=== PATIENT | female | born 1965 | race Caucasian/White ===

== ENCOUNTER 2016-11-06 18:27 | Emergency (ER) | payer BC, OTHER ==
[2016-11-06 18:37] VITALS: BP 131/70; PULSE 67; TEMP 98; BMI 33.0
[2016-11-06] MEDS ORDERED: IBUPROFEN 600 MG TABLET (FP) PO ONE ×2 (19:16→19:21)
[2016-11-06] MEDS ORDERED: CYCLOBENZAPRINE HCL 10 MG TABLET (FP) PO ONE (19:16)
--- NOTE | 2016-11-06 19:16 | PDOC ---
History of Present Illness - General Chief Complaint: Injury Stated Complaint: FALL, NECK PAIN Time Seen by Provider: 11/06/16 18:44 History Source: Patient Exam Limitations: No Limitations - History of Present Illness Initial Comments: 11/06/16 19:19 51-year-old female status post mechanical fall yesterday. Patient states was at [facility] when it began to rain causing her to slip backwards landing flat on her back striking her head. Patient states had no LOC but as the evening went on. Developing headache and nausea. Patient states symptoms continue but did not worsen since yesterday. Patient states on no anticoagulation therapy. Occurred: reports: yesterday Severity: reports: mild Pain Location: reports: head, neck Modifying Factors: improves with: None Associated Symptoms (Fall): headache, neck pain Past History - Travel Traveled outside of the country in the last 30 days: No Close contact w/someone who was outside of country & ill: No - Past Medical History Allergies/Adverse Reactions: Allergies Allergy/AdvReac Type Severity Reaction Status Date / Time No Known Drug Allergies Allergy Verified 11/06/16 18:37 Home Medications: Ambulatory Orders Albuterol Sulfate Inhaler - [Ventolin HFA Inhaler -] 1 - 2 inh PO QID PRN #1 inhaler 05/12/15 Cyclobenzaprine HCl [Flexeril -] 5 mg PO TID PRN #12 tablet 11/06/16 Anemia: No Asthma: Yes Cancer: No Cardiac Disorders: No CVA: No COPD: No CHF: No Dementia: No Diabetes: No GI Disorders: No Disorders: No HTN: No Hypercholesterolemia: No Liver Disease: No Seizures: No Thyroid Disease: No - Surgical History Abdominal Surgery: No Appendectomy: No Cardiac Surgery: No Cholecystectomy: No Lung Surgery: No Neurologic Surgery: No Orthopedic Surgery: Yes - Psycho/Social/Smoking Cessation Hx Anxiety: No Suicidal Ideation: No Smoking History: Never smoked Have you smoked in the past 12 months: No Information on smoking cessation initiated: No Hx Alcohol Use: No Drug/Substance Use Hx: No Substance Use Type: None Hx Substance Use Treatment: No Patient Lives Alone: No Lives with/in: spouse/SO Review of Systems - Review of Systems Able to Perform ROS?: Yes Constitutional: No: Symptoms Reported HEENTM: No: Symptoms Reported Respiratory: No: Symptoms reported Cardiac (ROS): No: Symptoms Reported ABD/GI: Yes: Nausea Musculoskeletal: Yes: Neck Pain Integumentary: Yes: Lumps (back of head) Neurological: Yes: Headache (occipital) Hematologic/Lymphatic: No: Symptoms Reported *Physical Exam - Vital Signs Last Vital Signs Temp Pulse Resp BP Pulse Ox 98 F 67 19 131/70 100 11/06/16 18:35 11/06/16 18:35 11/06/16 18:35 11/06/16 18:35 11/06/16 18:35 - Physical Exam General Appearance: Yes: Nourished, Appropriately Dressed. No: Apparent Distress HEENT: positive: EOMI, SREE, TMs Normal Neck: positive: Tender (C3-C4. left sternoclavicular muscle), Supple Gastrointestinal/Abdominal: positive: Soft. negative: Tenderness Integumentary: positive: Normal Color, Warm, Moist, Swelling (small hematoma to left occipital) Neurologic: positive: Normal Mood/Affect, Motor Strength 5/5 (ambulatory) Medical Decision Making - Medical Decision Making 11/06/16 19:24 Patient status post mechanical fall complaining of neck and head pain. Patient exam had point tenderness at C3-C4 and a small hematoma to the left occipital region. Patient ordered for Flexeril secondary to sternoclavicular tenderness on exam. Patient also ordered for Motrin head CT and cervical CT. 11/06/16 20:04 CT shows no gross fracture subluxation. There is no intracranial bleed or lesion. Patient be discharged home with postconcussive syndrome instructions and Flexeril along with Motrin. *DC/Admit/Observation/Transfer Diagnosis at time of Disposition: Post-concussion syndrome Closed head injury Qualifiers: Encounter type: initial encounter Qualified Code(s): S09.90XA - Unspecified injury of head, initial encounter - Discharge Dispostion Disposition: HOME Condition at time of disposition: Good - Prescriptions Prescriptions: Cyclobenzaprine HCl [Flexeril -] 5 mg PO TID PRN #12 tablet PRN Reason: Back Pain - Referrals Referrals: Lobito Murry MD [Primary Care Provider] - - Patient Instructions Printed Discharge Instructions: DI for Closed Head Injury, DI for Postconcussion Syndrome Additional Instructions: Please take Motrin and Flexeril as prescribed. please read over the instructions on postconcussive syndrome. If your symptoms worsen despite above recommendations please return to ED otherwise follow-up with your primary care physician.
[2016-11-06] MEDS ORDERED: CYCLOBENZAPRINE HCL 10 MG TABLET (FP) ONE (19:52)
== END 2016-11-06 20:13 | disposition home or self-care (01) ==
LOC: JERFT 18:27
DX: S09.90XA Unspecified injury of head, initial encounter (principal); W01.0XXA Fall on same level from slipping, tripping and stumbling without subsequent striking against object, initial encounter; F07.81 Postconcussional syndrome; J45.909 Unspecified asthma, uncomplicated; Y93.89 Activity, other specified; Y92.512 Supermarket, store or market as the place of occurrence of the external cause
CPT/HCPCS: 70450-TC; 72125-TC; 99281-25

== ENCOUNTER 2019-10-26 21:20 | Inpatient (IN) | payer OTHER ==
[2019-10-26 21:25] VITALS: BMI 33.0
--- NOTE | 2019-10-26 21:38 | PDOC ---
Attending Attestation - Resident Resident Name: Yaakov Herrera - ED Attending Attestation I have performed the following: I have examined & evaluated the patient, The case was reviewed & discussed with the resident, I agree w/resident's findings & plan - HPI HPI: 10/26/19 23:21 See resident HPI - Physicial Exam PE: 10/26/19 23:21 See resident exam - Medical Decision Making 10/26/19 23:21 54-year-old female with remote history of COVID 19 infection status post ablation for atrial fibrillation approximately 1 week ago currently on Eliquis now with chest pain radiating to the back CTA, dissection protocol performed of the chest abdomen and pelvis which showed no central pulmonary embolism or dissection, there was a pericardial effusion noted Patient's troponin is mildly elevated We will admit for observation and further evaluation Discharge - Discharge Information Problems reviewed: Yes Clinical Impression/Diagnosis: Chest pain, Pericardial effusion, Elevated troponin - Follow up/Referral Referrals: Lobito Murry MD [Primary Care Provider] - - Patient Discharge Instructions - Post Discharge Activity
--- NOTE | 2019-10-26 22:02 | PDOC ---
History of Present Illness - General Chief Complaint: Chest Pain Stated Complaint: CHEST/BACK PAIN Time Seen by Provider: 10/26/19 21:32 History Source: Patient Exam Limitations: No Limitations - History of Present Illness Initial Comments: 10/27/19 05:40 54 yo female pmh A fib on eliquis and COVID diagnosed July presents to the ED for CP and SOB. Pt states she had an ablation for afib 1 week ago at [facility]. States the pain began 1 day ago, persistent, described as substernal burning with radiation straight to her back. Pt states she is unable to lie flat since it makes the pain and SOB worse. Deniese F/C/N/V, abdominal pain, weakness or sensory changes on 1 side Past History - Medical History Allergies/Adverse Reactions: Allergies Allergy/AdvReac Type Severity Reaction Status Date / Time No Known Drug Allergies Allergy Verified 10/26/19 21:25 Home Medications: Ambulatory Orders Atorvastatin Ca [Lipitor] 40 mg PO HS 07/14/19 Metoprolol Succinate [Toprol Xl] 25 mg PO DAILY 07/14/19 Acetaminophen [Tylenol .Regular Strength -] 650 mg PO Q4H PRN tablet 07/21/19 Apixaban [Eliquis -] 5 mg PO BID #60 tablet 07/21/19 Ascorbic Acid [Vitamin C] 250 mg PO BID #60 tablet 07/21/19 Hydroxychloroquine Sulfate [Plaquenil] 200 mg PO BID #4 tablet 07/21/19 Zinc 50 mg PO BID #60 tablet 07/21/19 Anemia: No Asthma: Yes Cancer: No Cardiac Disorders: Yes (A fib) CVA: No COPD: No CHF: No Dementia: No Diabetes: No GI Disorders: No Disorders: No HTN: No Hypercholesterolemia: No Liver Disease: No Seizures: No Thyroid Disease: No - Surgical History Abdominal Surgery: No Appendectomy: No Cardiac Surgery: Yes (ablasion 10/2019) Cholecystectomy: No Lung Surgery: No Neurologic Surgery: No Orthopedic Surgery: Yes - Immunization History Immunization Up to Date: Yes - Psycho-Social/Smoking History Smoking History: Never smoked Have you smoked in the past 12 months: No - Substance Abuse Hx (Audit-C & DAST Scrn) How often the patient has a drink containing alcohol: Never Score: In Men: 4 or > Positive; In Women: 3 or > Positive: 0 Screen Result (Pos requires Nsg. Audit-10AR): Negative Review of Systems - Review of Systems Constitutional: Yes: Symptoms Reported HEENTM: Yes: Symptoms Reported Respiratory: Yes: Symptoms reported Cardiac (ROS): Yes: Symptoms Reported ABD/GI: Yes: Symptoms Reported : Yes: Symptoms Reported Musculoskeletal: Yes: Symptoms Reported Integumentary: Yes: Symptoms Reported Neurological: Yes: Symptoms reported *Physical Exam - Vital Signs Last Vital Signs Temp Pulse Resp BP Pulse Ox 98 F 108 H 20 121/71 95 10/26/19 21:22 10/26/19 21:22 10/26/19 21:22 10/26/19 21:22 10/26/19 21:22 - Physical Exam General Appearance: Yes: Nourished, Appropriately Dressed, Apparent Distress (bent forward in pain) HEENT: positive: EOMI Neck: positive: Supple. negative: Carotid bruit Respiratory/Chest: positive: Lungs Clear, Normal Breath Sounds. negative: Respiratory Distress, Accessory Muscle Use, Rapid RR, Crackles, Rales, Rhonchi, Stridor, Wheezing Cardiovascular: positive: Regular Rhythm, S1, S2, Tachycardia. negative: Edema, JVD, Murmur Gastrointestinal/Abdominal: positive: Flat, Soft. negative: Pulsatile Mass, Protuberent, Distended, Guarding, Rebound, Tenderness Musculoskeletal: negative: CVA Tenderness Extremity: positive: Other (radial pulses equal bilaterally). negative: Delayed Capillary Refill Integumentary: positive: Normal Color, Dry, Warm Neurologic: positive: Fully Oriented, Alert, Normal Mood/Affect, Normal Response ED Treatment Course - LABORATORY CBC & Chemistry Diagram: 10/26/19 22:00 10/26/19 22:00 - RADIOLOGY Radiology Studies Ordered: Category Date Time Status ABDOMEN/PELVIS CTA W/WO CONTR [CT] Stat CT Scan 10/26/19 21:49 Ordered CHEST CTA [CT] Stat CT Scan 10/26/19 21:49 Ordered CHEST PA & LAT [RAD] Stat Radiology 10/26/19 21:32 Ordered Medical Decision Making - Medical Decision Making 10/26/19 22:02 54 yo female pmh A fib on eliquis and COVID diagnosed July presents to the ED for CP and SOB. Pt states she had an ablation for afib 1 week ago at [facility]. States the pain began 1 day ago, persistent, described as substernal burning with radiation straight to her back. Pt states she is unable to lie flat since it makes the pain and SOB worse. [place] F/C/N/V, abdominal pain, weakness or sensory changes on 1 side vitals show elevated HR and systolic BP 117 on the left arm and 130 systolic on the right Due to description of pain and vitals, R/O aortic dissection CTA indicated prior to labs Pt is post menopausal 6 years EKG NSR without acute signs of ischemia Tylenol given R/O dissection, will not wait for labs, patient agrees, risks and benefits explained and pt demonstrates clear understanding. Pt sign paper work 10/27/19 00:02 CTA neg for dissection however, small pericardial effusion noted Discussed case with Dr. Damon Cardiology, states likely having Pericarditis. States 0.6 mg Colchicine BID for 2 weeks and switch to 0.6 mg once daily. Aware of elevated trop, states it should be trended and will Dr. Wade will see the patient in the morning. Pt reports improvement in pain Pt accepted for admission Discharge - Discharge Information Problems reviewed: Yes Clinical Impression/Diagnosis: Chest pain, Pericardial effusion, Elevated troponin, Pericarditis, Myocarditis - Admission Yes - Follow up/Referral - Patient Discharge Instructions - Post Discharge Activity
[2019-10-26 22:16] LABS: BASO % 0.4 % (0-2.0); EOS % 0.6 % (0-4.5); HEMATOCRIT 38.7 % (32.4-45.2); HEMOGLOBIN 13.6 GM/dL (10.7-15.3); LYMPH % 9.3 % (8-40); MCH 31.3 pg (25.7-33.7); MEAN CELL VOLUME 89.4 fl (80-96); MEAN PLT VOLUME 7.4 fl (7.5-11.1); MONO % 8.7 % (3.8-10.2); PLATELET COUNT 255 K/MM3 (134-434); RBC 4.33 M/mm3 (3.60-5.2); RDW 13.8 % (11.6-15.6)
[2019-10-26 22:19] LABS: INR 1.28 (0.83-1.09); PROTHROMBIN TIME (PATIENT) 15.1 SEC (9.7-13.0)
[2019-10-26 22:22] LABS: ACTIVATED PTT 32.9 SECONDS (25.2-36.5)
[2019-10-26 22:41] LABS: ALBUMIN 3.6 g/dl (3.4-5.0); BILIRUBIN,TOTAL 0.8 mg/dL (0.2-1); BLOOD UREA NITROGEN 9.1 mg/dL (7-18); CALCIUM 8.8 mg/dL (8.5-10.1); CREATININE 0.8 mg/dL (0.55-1.3); MAGNESIUM 1.8 mg/dL (1.8-2.4); POTASSIUM 3.4 mmol/L (3.5-5.1)
[2019-10-26] MEDS ORDERED: ACETAMINOPHEN 1000 MG/100 ML VIAL (NON FORMULARY) IVPB ONE (23:20)
[2019-10-26] MEDS ORDERED: ACETAMINOPHEN INJECTION 100 ML IVPB ONE (23:24)
[2019-10-27] MEDS ORDERED: COLCHICINE 0.6 MG CAP PO ONE (00:01)
--- NOTE | 2019-10-27 00:09 | HP ---
Admitting History and Physical - Primary Care Physician PCP: Lobito Murry - Admission Chief Complaint: Chest Pain History of Present Illness: This is a 54 y/o female with a pMhx of Afib (on eliquis), +COVID (diagnosed last July), s/p Cardiac Ablation for Afib at [facility] (last week). Who presents to the ED for CP and SOB. Patient reports having substernal burning chest pain that radiated to her back, with SOB and pain on deep inspiration x 1 day. Patient reports that she is unable to lie flat since it makes the pain and SOB worse. Patient denies fever, chills, cough, NEVES. dizziness, AP, N/V/D, constipation, dysuria. History Source: Patient Limitations to Obtaining History: No Limitations - Past Medical History Cardiovascular: Yes: HTN, Hyperlipdemia Pulmonary: Yes: COPD ...LMP: 09/05/11 Infectious Disease: Yes: Other (COVID-19) - Past Surgical History Additional Past Surgical History: Cardiac Ablation (10/2019) - Smoking History Smoking history: Never smoked Have you smoked in the past 12 months: No - Alcohol/Substance Use Hx Alcohol Use: No History of Substance Use: reports: None - Social History Usual Living Arrangement: Yes: With Spouse Do you think of yourself as: Straight/Heterosexual ADL: Independent Home Medications - Allergies Allergies/Adverse Reactions: Allergies Allergy/AdvReac Type Severity Reaction Status Date / Time No Known Drug Allergies Allergy Verified 10/26/19 21:25 - Home Medications Home Medications: Ambulatory Orders Atorvastatin Ca [Lipitor] 20 mg PO HS 07/14/19 Metoprolol Succinate [Toprol Xl] 25 mg PO DAILY 07/14/19 Acetaminophen [Tylenol .Regular Strength -] 650 mg PO Q4H PRN tablet 07/21/19 Apixaban [Eliquis -] 5 mg PO BID #60 tablet 07/21/19 Pantoprazole Sodium [Protonix] 40 mg PO DAILY 10/27/19 Sucralfate Oral Suspension [Carafate *Oral Susp*] 1 gm PO DAILY 10/27/19 Family Medical History Family History: Unable to Obtain Review of Systems - Review of Systems Constitutional: reports: No Symptoms Eyes: reports: No Symptoms HENT: reports: No Symptoms Neck: reports: No Symptoms Cardiovascular: reports: Chest Pain, Shortness of Breath Respiratory: reports: SOB Gastrointestinal: reports: No Symptoms Genitourinary: reports: No Symptoms Breasts: reports: No Symptoms Reported Musculoskeletal: reports: Back Pain Integumentary: reports: No Symptoms Neurological: reports: No Symptoms Endocrine: reports: No Symptoms Hematology/Lymphatic: reports: No Symptoms Psychiatric: reports: No Symptoms Pain Intensity: 6 Physical Examination Vital Signs: Vital Signs Temperature 98 F 10/26/19 21:22 Pulse Rate 108 H 10/26/19 21:22 Respiratory Rate 20 10/26/19 21:22 Blood Pressure 121/71 10/26/19 21:22 O2 Sat by Pulse Oximetry (%) 95 10/26/19 21:22 Constitutional: Yes: No Distress, Calm, Obese Eyes: Yes: WNL, Conjunctiva Clear, EOM Intact, PERRL HENT: Yes: WNL, Atraumatic, Normocephalic Neck: Yes: WNL, Supple, Trachea Midline Cardiovascular: Yes: Regular Rate and Rhythm, S1, S2 Respiratory: Yes: Diminished (bases) Gastrointestinal: Yes: WNL, Normal Bowel Sounds, Soft ...Rectal Exam: Yes: Deferred Renal/: Yes: WNL Breast(s): Yes: WNL Musculoskeletal: Yes: Back Pain Extremities: Yes: WNL Edema: No Peripheral Pulses WNL: Yes Integumentary: Yes: WNL Neurological: Yes: WNL, Alert, Oriented, Cran Nerves II-XII Intact ...Motor Strength: WNL Psychiatric: Yes: WNL, Alert, Oriented Labs: CBC, BMP 10/26/19 22:00 10/26/19 22:00 Laboratory Results - last 24 hr 10/26/19 10/26/19 10/26/19 22:00 22:00 22:00 WBC 10.0 RBC 4.33 Hgb 13.6 Hct 38.7 MCV 89.4 MCH 31.3 MCHC 35.0 RDW 13.8 Plt Count 255 D MPV 7.4 L Absolute Neuts (auto) 8.1 H Neutrophils % 81.0 D Lymphocytes % 9.3 D Monocytes % 8.7 Eosinophils % 0.6 Basophils % 0.4 Nucleated RBC % 0 PT with INR 15.10 H INR 1.28 H PTT (Actin FS) 32.9 D-Dimer Sodium Potassium Chloride Carbon Dioxide Anion Gap BUN Creatinine Est GFR (CKD-EPI)AfAm Est GFR (CKD-EPI)NonAf Random Glucose Lactic Acid Calcium Magnesium Total Bilirubin AST ALT Alkaline Phosphatase Creatine Kinase Troponin I Total Protein Albumin Serum , Qual Negative Blood Type Antibody Screen 10/26/19 10/26/19 10/26/19 22:00 22:00 22:00 WBC RBC Hgb Hct MCV MCH MCHC RDW Plt Count MPV Absolute Neuts (auto) Neutrophils % Lymphocytes % Monocytes % Eosinophils % Basophils % Nucleated RBC % PT with INR INR PTT (Actin FS) D-Dimer 799 H Sodium 138 Potassium 3.4 L Chloride 104 Carbon Dioxide 25 Anion Gap 10 BUN 9.1 Creatinine 0.8 Est GFR (CKD-EPI)AfAm 96.87 Est GFR (CKD-EPI)NonAf 83.58 Random Glucose 125 H Lactic Acid 1.6 Calcium 8.8 Magnesium 1.8 Total Bilirubin 0.8 AST 32 ALT 61 Alkaline Phosphatase 103 Creatine Kinase 58 Troponin I 0.17 H Total Protein 7.0 Albumin 3.6 Serum , Qual Blood Type Antibody Screen 10/26/19 22:00 WBC RBC Hgb Hct MCV MCH MCHC RDW Plt Count MPV Absolute Neuts (auto) Neutrophils % Lymphocytes % Monocytes % Eosinophils % Basophils % Nucleated RBC % PT with INR INR PTT (Actin FS) D-Dimer Sodium Potassium Chloride Carbon Dioxide Anion Gap BUN Creatinine Est GFR (CKD-EPI)AfAm Est GFR (CKD-EPI)NonAf Random Glucose Lactic Acid Calcium Magnesium Total Bilirubin AST ALT Alkaline Phosphatase Creatine Kinase Troponin I Total Protein Albumin Serum , Qual Blood Type O POSITIVE Antibody Screen Negative Intake & Output 10/24/19 10/25/19 10/26/19 10/27/19 23:59 23:59 23:59 23:59 Weight 104.326 kg Current Medications Generic Name Dose Route Start Last Admin Trade Name Freq PRN Reason Stop Dose Admin Apixaban 5 mg 10/27/19 00:45 10/27/19 01:15 Eliquis - PO 5 mg BID THOMAS Administration Atorvastatin Calcium 40 mg 10/27/19 00:37 10/27/19 01:15 Lipitor - PO 40 mg HS THOMAS Administration Sucralfate 1 gm 10/27/19 00:45 10/27/19 01:24 Carafate Oral Suspension - PO 1 gm BID THOMAS Administration Imaging - Results Cat Scan: Report Reviewed, Image Reviewed EKG: Image Reviewed Problem List - Problems (1) Chest pain Assessment/Plan: Likely secondary to Pericarditis Less likely ACS HEART Score 4 Continue cardiac monitoring Serial enzymes EKG reviewed Appreciate Cardiology consult Colchicine given in ED will continue Monitor CBC, CMP Code(s): R07.9 - CHEST PAIN, UNSPECIFIED (2) Elevated troponin Assessment/Plan: Likely due to post ablation EKG- no ischemia noted Serial enzymes Cardiology consulted Code(s): R79.89 - OTHER SPECIFIED ABNORMAL FINDINGS OF BLOOD CHEMISTRY (3) A-fib Assessment/Plan: s/p Ablation EKG reviewed Continue Metoprolol, Eliquis Code(s): I48.91 - UNSPECIFIED ATRIAL FIBRILLATION (4) HTN (hypertension) Assessment/Plan: stable Monitor BP Continue Metoprolol Monitor renal function Code(s): I10 - ESSENTIAL (PRIMARY) HYPERTENSION (5) Suspected COVID-19 virus infection Assessment/Plan: SMART-STITCH WELDER 2, low risk COVID + 07/2019 CTA- reviewed COVID PCR-pending Isolation Precautions Code(s): R68.89 - OTHER GENERAL SYMPTOMS AND SIGNS Assessment/Plan This is a 54 y/o female admitted to Telemetry for Chest Pain, Suspected COVID-19 Infection, Troponinemia for further evaluation of their emergent condition. Plan: See Problem List FEN PO fluids as tolerated Replete lytes prn Low Na Diet DVT ppx OOB SCDs Continue Eliquis Dispo: Requires Inpatient Care Visit type - Emergency Visit Emergency Visit: Yes ED Registration Date: 10/26/19 Care time: The patient presented to the Emergency Department on the above date and was hospitalized for further evaluation of their emergent condition. - New Patient This patient is new to me today: Yes Date on this admission: 10/27/19 - Critical Care Critical Care patient: No
[2019-10-27] MEDS ORDERED: COLCHICINE 0.6 MG CAP ONE ×2 (00:23→09:48)
[2019-10-27] MEDS ORDERED: APIXABAN 5 MG TABLET ONE ×2 (01:01→09:48)
[2019-10-27] MEDS ORDERED: SUCRALFATE 1 GM TABLET (FP) ONE (01:02)
[2019-10-27] MEDS ORDERED: ATORVASTATIN CA 40 MG TABLET (FP) ONE (01:02)
[2019-10-27] MEDS: APIXABAN 5 MG TABLET PO SCH ×3 (01:15→21:17)
[2019-10-27] MEDS: ATORVASTATIN CA 40 MG TABLET (FP) PO SCH ×2 (01:15→21:17)
[2019-10-27] MEDS: SUCRALFATE 1 GM/10 ML UNIT DOSE CUPS PO SCH ×3 (01:24→21:17)
[2019-10-27] MEDS ORDERED: ACETAMINOPHEN 325 MG TABLET (FP) PO PRN (07:16)
[2019-10-27 07:24] LABS: BASO % 0.9 % (0-2.0); EOS % 0.7 % (0-4.5); HEMATOCRIT 37.5 % (32.4-45.2); HEMOGLOBIN 12.7 GM/dL (10.7-15.3); LYMPH % 16.2 % (8-40); MCH 30.5 pg (25.7-33.7); MCHC 33.9 g/dl (32.0-36.0); MEAN CELL VOLUME 89.9 fl (80-96); MEAN PLT VOLUME 8.1 fl (7.5-11.1); MONO % 11.4 % (3.8-10.2); NEUT % 70.8 % (42.8-82.8); PLATELET COUNT 248 K/MM3 (134-434); RBC 4.17 M/mm3 (3.60-5.2); RDW 13.8 % (11.6-15.6)
[2019-10-27 07:51] LABS: ALBUMIN 3.2 g/dl (3.4-5.0); BILIRUBIN,TOTAL 1.1 mg/dL (0.2-1); BLOOD UREA NITROGEN 6.6 mg/dL (7-18); CALCIUM 8.6 mg/dL (8.5-10.1); CREATININE 0.7 mg/dL (0.55-1.3); MAGNESIUM 1.9 mg/dL (1.8-2.4); POTASSIUM 3.9 mmol/L (3.5-5.1); TOT PROT 6.4 g/dl (6.4-8.2)
[2019-10-27] MEDS: COLCHICINE 0.6 MG CAP PO SCH ×2 (10:07→21:17)
--- NOTE | 2019-10-27 11:48 | CON.CARD ---
Consult Consult Specialty:: Cardiology Referred by:: Hospitalist Reason for Consultation:: Chest pain, sob, elevated trop - History of Present Illness Chief Complaint: Chest pain, sob History of Present Illness: 54 year old woman with a pmh HTN, HLD, COVID19 infection 07/2019, Afib dx 07/2019 at time of COVID19 on eliquis, s/p ablation 1 week ago at [facility], admitted with chest pain and sob and mildly elevated troponin. CTA chest done to r/o dissection showed no aneursym or dissection but a small pericardial effusion. Pt seen and examined today in nad. states she has been having substernal chest pain radiating to her back worsened by lying down and other positions and relieved by sitting up. also notes sob/jay that she has had since her COVID19 infection but has not worsened recently. no palpitations, pnd, orthopnea, or LE edema. No fever or chills. She has had 2 prior cardiac caths, most recent 02/2019 at [facility] at which time found to have normal coronary arteries. - History Source History Provided By: Patient, Medical Record Limitations to Obtaining History: No Limitations - Past Medical History Cardio/Vascular: Yes: AFIB, HTN, Hyperlipdemia Pulmonary: Yes: COPD ...LMP: 09/05/11 Infectious Disease: Yes: Other (COVID-19) - Alcohol/Substance Use Hx Alcohol Use: No History of Substance Use: reports: None - Smoking History Smoking history: Never smoked Have you smoked in the past 12 months: No - Social History ADL: Independent Home Medications - Allergies Allergies/Adverse Reactions: Allergies Allergy/AdvReac Type Severity Reaction Status Date / Time No Known Drug Allergies Allergy Verified 10/26/19 21:25 - Home Medications Home Medications: Ambulatory Orders Atorvastatin Ca [Lipitor] 20 mg PO HS 07/14/19 Metoprolol Succinate [Toprol Xl] 25 mg PO DAILY 07/14/19 Acetaminophen [Tylenol .Regular Strength -] 650 mg PO Q4H PRN tablet 07/21/19 Apixaban [Eliquis -] 5 mg PO BID #60 tablet 07/21/19 Pantoprazole Sodium [Protonix] 40 mg PO DAILY 10/27/19 Sucralfate Oral Suspension [Carafate *Oral Susp*] 1 gm PO DAILY 10/27/19 Family Medical History Family History: Denies Review of Systems - Review of Systems Constitutional: denies: No Symptoms, Chills, Diaphoresis, Fever, Lethargy, Loss of Appetite, Malaise, Night Sweats, Unintentional Wgt. Loss, Weakness, Other Eyes: denies: No Symptoms, Blind Spots, Blurred Vision, Double Vision, Eye Pain, Floaters, Photophobia, Recent Change in Vision, Other HENT: denies: No Symptoms, Difficult Swallowing, Ear Discharge, Ear Pain, Epistaxis, Gingival Bleeding, Hearing Loss, Mouth Swelling, Nasal Congestion, Ocular Prosthesis, Throat Pain, Toothache, Ringing in Ears, Other Neck: denies: No Symptoms, Decreased ROM, Lumps, Pain on Movement, Stiffness, Swollen Glands, Tenderness, Other Cardiovascular: reports: Chest Pain, Shortness of Breath. denies: No Symptoms, Edema, Palpitations, Other Respiratory: reports: SOB, SOB on Exertion. denies: No Symptoms, Cough, E xercise Intolerance, Hemoptysis, Orthopnea, PND, Snoring, Wheezing, Other Gastrointestinal: denies: No Symptoms, Abdominal Pain, Bloating, Constipation, Diarrhea, Dysphagia, Indigestion, Melena, Nausea, Rectal Bleeding, Vomiting, Vomiting Blood, Other Genitourinary: denies: No Symptoms, Burning, Discharge, Dysuria, Flank Pain, Frequency, Hematuria, Incontinence, Lesions, Menses, Pain, Testicular Mass, Testicular Pain, Testicular Swelling, Urgency, Vaginal Bleeding, Other Breasts: denies: No Symptoms Reported, See HPI, Breast Implants, Discharge from Nipple, Lumps, Pain, Skin Changes, Other Musculoskeletal: denies: No Symptoms, Back Pain, Crepitus, Decreased ROM, Extremity Pain, Joint Pain, Joint Swelling, Muscle Pain, Muscle Cramps, Muscle Weakness, Other Integumentary: denies: No Symptoms, Blister, Bruising, Change in Color, Eczema, Erythema, Incision, Lesions, Lump, Pallor, Pruritis, Rash, Wound, Other Neurological: denies: No Symptoms, Change in LOC, Change in Speech, Confusion, Dizziness, Headache, Incoordination, Numbness, Parasthesia, Pre-Existing Deficit, Seizure, Syncope, Tremors, Unsteady Gait, Weakness, Other Endocrine: denies: No Symptoms, Excessive Sweating, Flushing, Increased Hunger, Increased Thirst, Intolerance to Cold, Intolerance to Heat, Unexplained Weight Gain, Unexplained Weight Loss, Other Hematology/Lymphatic: denies: No Symptoms, Easily Bruised, Excessive Bleeding, Swollen Glands, Other Psychiatric: denies: No Symptoms, Altered Sleep Pattern, Anxiety, Depression, Hallucinations, Panic, Paranoia, Suicidal, Other - Risk Factors Known Risk Factors: Yes: Hypercholesterolemia, Hypertension Vital Signs: Vital Signs Temperature 99.2 F 10/27/19 10:00 Pulse Rate 90 10/27/19 10:00 Respiratory Rate 18 10/27/19 10:00 Blood Pressure 100/64 10/27/19 10:00 O2 Sat by Pulse Oximetry (%) 99 10/27/19 10:00 Constitutional: Yes: Well Nourished, No Distress, Calm Eyes: Yes: Conjunctiva Clear, EOM Intact HENT: Yes: Atraumatic, Normocephalic Neck: Yes: Supple, Trachea Midline Respiratory: Yes: Regular, Rhonchi, SOB on Exertion. No: Rales, SOB, Wheezes Gastrointestinal: Yes: Normal Bowel Sounds, Soft. No: Distention, Tenderness Cardiovascular: Yes: Regular Rate and Rhythm. No: Bradycardia, Tachycardia, Pulse Irregular, Gallop, Rub, Varicosities JVD: No Carotid Bruit: No PMI: Non-Displaced Heart Sounds: Yes: S1, S2. No: Split S2, S3, S4, Clicks, Gallop, Rub, Bruit Murmur: No: Systolic Murmur, Diastolic Murmur Musculoskeletal: Yes: WNL Extremities: Yes: WNL Edema: No Peripheral Pulses WNL: Yes Peripheral Pulses: 2+ Left Doralis Pedis, 2+ Right Dorsalis Pedis Neurological: Yes: Alert, Oriented Psychiatric: Yes: Alert, Oriented - Other Data Labs, Other Data: CBC, BMP 10/27/19 05:45 10/27/19 06:00 INR, PTT INR 1.28 (0.83-1.09) H 10/26/19 22:00 Troponin, BNP 10/26/19 10/27/19 22:00 06:00 Troponin I 0.17 H 0.15 H Troponin, BNP 10/26/19 10/27/19 22:00 06:00 Troponin I 0.17 H 0.15 H ekg-nsr, no ischemia Prior Cardiac Procedures: Ablation Imaging - Results Chest X-ray: Report Reviewed, Image Reviewed EKG: Report Reviewed, Image Reviewed Other: Report Reviewed, Image Reviewed Assessment/Plan 54 year old woman with a pmh HTN, HLD, COVID19 infection 07/2019, Afib on eliquis, s/p ablation 1 week ago at [facility], admitted with chest pain and sob and mildly elevated troponin. CTA chest done to r/o dissection showed no aneursym or dissection but a small pericardial effusion. Pt seen and examined today in nad. states she has been having substernal chest pain radiating to her back worsened by lying down and other positions and relieved by sitting up. also notes sob/jay that she has had since her COVID19 infection but has not worsened recently. no palpitations, pnd, orthopnea, or LE edema. No fever or chills. She has had 2 prior cardiac caths, most recent 02/2019 at [facility] at which time found to have normal coronary arteries. Chest pain -clinically c/w pericarditis -not c/w ACS -elevated troponin with normal CK, have not trended up significantly, could be residual elevation post ablation -recent cardiac cath showed normal coronary arteries -no ischemia on ekg -recent Afib ablation and small pericardial effusion on CT supports pericarditis despite no obvious ECG findings -started on colchicine which should continue on discharge -d/w Dr. Payan, EP who did her ablation and he agrees with above -check echo to confirm pericardial effusion -does not require an ischemic evaluation Afib-s/p ablation 1 week ago [facility] on admission -cont eliquis -outpatient fup If echo shows only small pericardial effusion and if pts symptoms improve would be acceptable for discharge home with outpatient fup.
--- NOTE | 2019-10-27 12:13 | EKG ---
Test Reason : Blood Pressure : / mmHG Vent. Rate : 108 BPM Atrial Rate : 108 BPM P-R Int : 164 ms QRS Dur : 080 ms QT Int : 334 ms P-R-T Axes : 070 019 000 degrees QTc Int : 447 ms POOR DATA QUALITY, INTERPRETATION MAY BE ADVERSELY AFFECTED SINUS TACHYCARDIA T WAVE ABNORMALITY, CONSIDER INFEROLATERAL ISCHEMIA ABNORMAL ECG WHEN COMPARED WITH ECG OF 21-JUL-2019 10:38, SINUS RHYTHM HAS REPLACED ATRIAL FIBRILLATION Confirmed by DAVID FRAGOSO MD ([id number]) on 10/27/2019 12:13:17 PM Referred By: Confirmed By:DAVID FRAGOSO MD
--- NOTE | 2019-10-27 12:31 | PN ---
Physical Exam: SUBJECTIVE: Patient seen and examined. She was seen eating lunch. She reports that she still has some difficulty with deep breathing however slightly improved compared to yesterday. OBJECTIVE: Vital Signs Period Temp Pulse Resp BP Sys/Kimball Pulse Ox Last 24 Hr 98 F-99.6 F 85-108 18- 98-121/63-78 95-99 GENERAL: The patient is awake, alert, and fully oriented, in no acute distress. HEAD: Normal with no signs of trauma. EYES: PERRL, extraocular movements intact, sclera anicteric, conjunctiva clear. No ptosis. ENT: Ears normal, nares patent, oropharynx clear without exudates, moist mucous membranes. NECK: Trachea midline, full range of motion, supple. LUNGS: Faint crackles at the bases. No ronchi nor wheezing. Poor air movement HEART: Borderline tachycardic, no murmurs ABDOMEN: Soft, nontender, nondistended, normoactive bowel sounds, no guarding, no rebound, no hepatosplenomegaly, no masses. EXTREMITIES: 2+ pulses, warm, well-perfused, no edema. NEUROLOGICAL: Cranial nerves II through XII grossly intact. Normal speech, gait not observed. PSYCH: Normal mood, normal affect. SKIN: Warm, dry, normal turgor, no rashes or lesions noted Laboratory Results - last 24 hr 10/26/19 10/26/19 10/26/19 22:00 22:00 22:00 WBC 10.0 RBC 4.33 Hgb 13.6 Hct 38.7 MCV 89.4 MCH 31.3 MCHC 35.0 RDW 13.8 Plt Count 255 D MPV 7.4 L Absolute Neuts (auto) 8.1 H Neutrophils % 81.0 D Lymphocytes % 9.3 D Monocytes % 8.7 Eosinophils % 0.6 Basophils % 0.4 Nucleated RBC % 0 PT with INR 15.10 H INR 1.28 H PTT (Actin FS) 32.9 D-Dimer Sodium Potassium Chloride Carbon Dioxide Anion Gap BUN Creatinine Est GFR (CKD-EPI)AfAm Est GFR (CKD-EPI)NonAf Random Glucose Lactic Acid Calcium Magnesium Total Bilirubin AST ALT Alkaline Phosphatase LD Total Creatine Kinase Troponin I C-Reactive Protein Total Protein Albumin Triglycerides Cholesterol Total LDL Cholesterol HDL Cholesterol Serum , Qual Negative Blood Type Antibody Screen 10/26/19 10/26/19 10/26/19 22:00 22:00 22:00 WBC RBC Hgb Hct MCV MCH MCHC RDW Plt Count MPV Absolute Neuts (auto) Neutrophils % Lymphocytes % Monocytes % Eosinophils % Basophils % Nucleated RBC % PT with INR INR PTT (Actin FS) D-Dimer 799 H Sodium 138 Potassium 3.4 L Chloride 104 Carbon Dioxide 25 Anion Gap 10 BUN 9.1 Creatinine 0.8 Est GFR (CKD-EPI)AfAm 96.87 Est GFR (CKD-EPI)NonAf 83.58 Random Glucose 125 H Lactic Acid 1.6 Calcium 8.8 Magnesium 1.8 Total Bilirubin 0.8 AST 32 ALT 61 Alkaline Phosphatase 103 LD Total Creatine Kinase 58 Troponin I 0.17 H C-Reactive Protein Total Protein 7.0 Albumin 3.6 Triglycerides Cholesterol Total LDL Cholesterol HDL Cholesterol Serum , Qual Blood Type Antibody Screen 10/26/19 10/27/19 10/27/19 22:00 05:45 05:45 WBC 9.0 RBC 4.17 Hgb 12.7 Hct 37.5 MCV 89.9 MCH 30.5 MCHC 33.9 RDW 13.8 Plt Count 248 MPV 8.1 Absolute Neuts (auto) 6.3 Neutrophils % 70.8 Lymphocytes % 16.2 D Monocytes % 11.4 H Eosinophils % 0.7 Basophils % 0.9 Nucleated RBC % 0 PT with INR INR PTT (Actin FS) D-Dimer 782 H Sodium Potassium Chloride Carbon Dioxide Anion Gap BUN Creatinine Est GFR (CKD-EPI)AfAm Est GFR (CKD-EPI)NonAf Random Glucose Lactic Acid Calcium Magnesium Total Bilirubin AST ALT Alkaline Phosphatase LD Total Creatine Kinase Troponin I C-Reactive Protein Total Protein Albumin Triglycerides Cholesterol Total LDL Cholesterol HDL Cholesterol Serum , Qual Blood Type O POSITIVE Antibody Screen Negative 10/27/19 10/27/19 10/27/19 06:00 06:00 06:00 WBC RBC Hgb Hct MCV MCH MCHC RDW Plt Count MPV Absolute Neuts (auto) Neutrophils % Lymphocytes % Monocytes % Eosinophils % Basophils % Nucleated RBC % PT with INR INR PTT (Actin FS) D-Dimer Sodium 140 Potassium 3.9 Chloride 102 Carbon Dioxide 29 Anion Gap 8 BUN 6.6 L Creatinine 0.7 Est GFR (CKD-EPI)AfAm 113.84 Est GFR (CKD-EPI)NonAf 98.23 Random Glucose 106 Lactic Acid Calcium 8.6 Magnesium 1.9 Total Bilirubin 1.1 H AST 24 ALT 52 Alkaline Phosphatase 92 LD Total 174 Creatine Kinase Troponin I 0.15 H C-Reactive Protein 9.3 H Total Protein 6.4 Albumin 3.2 L Triglycerides 44 Cholesterol 130 Total LDL Cholesterol 72 HDL Cholesterol 47 Serum , Qual Blood Type Antibody Screen Active Medications Generic Name Dose Route Start Last Admin Trade Name Freq PRN Reason Stop Dose Admin Acetaminophen 650 mg 10/27/19 07:16 Tylenol - PO Q6H PRN PAIN LEVEL 6-10 Apixaban 5 mg 10/27/19 00:45 10/27/19 10:07 Eliquis - PO 5 mg BID THOMAS Administration Atorvastatin Calcium 40 mg 10/27/19 00:37 10/27/19 01:15 Lipitor - PO 40 mg HS THOMAS Administration Colchicine 0.6 mg 10/27/19 10:00 10/27/19 10:07 Colcrys PO 0.6 mg BID THOMAS Administration Sucralfate 1 gm 10/27/19 00:45 10/27/19 10:07 Carafate Oral Suspension - PO 1 gm BID THOMAS Administration ASSESSMENT/PLAN: 1. Chest pains likely from pericarditis - sp recent afib ablation - colchicine initiated - appreciate input by human relations professor 2. Afib with borderline controlled rate - cont with anticoagulation with eliquis 3. Abnormal CT - recently recovered from covid-19 - re swab for covid-19 - cover for bacterial pneumonia - Requested Dr Marcos (met pt previously) to see patient - oxygen support to keep sats>92% and above - send D-dimer, LDH, ferritin 4. DVT prophylaxis - on Eliquis (#2) Visit type - Emergency Visit Emergency Visit: No - New Patient This patient is new to me today: Yes Date on this admission: 11/11/19 - Critical Care Critical Care patient: No - Discharge Referral Referred to [facility] No
[2019-10-27] MEDS ORDERED: CEFTRIAXONE 1 GM/50 ML BAG ONE (14:17)
[2019-10-27] MEDS: CEFTRIAXONE 1 GM in DEXTROSE 5%-WATER - 50 ML IVPB SCH (14:25)
--- NOTE | 2019-10-27 15:49 | ECHO ---
Name: STORMY RHODES Exam:Adult Echocardiogram Study Date: 10/27/2019 02:39 PM Age: 54 yrs Reason For Study: Pericardial Effusion, A-Fib ablation Height: 70 in Weight: 230 lb BSA: 2.2 m2 MMode/2D Measurements & Calculations IVSd: 1.1 cm Ao root diam: 2.6 cm LVIDd: 5.2 cm LA dimension: 4.5 cm LVIDs: 3.3 cm ACS: 1.7 cm LVPWd: 1.0 cm EDV(Marcela): 127.4 ml LAV (MOD-bp): 67.7 ml ESV(Jboyich): 44.3 ml TAPSE: 2.5 cm RV S Jonathan: 15.1 cm/sec Doppler Measurements & Calculations MV E max jonathan: 102.0 cm/sec Ao V2 max: 149.3 cm/sec MV A max jonathan: 64.5 cm/sec Ao max P.9 mmHg MV E/A: 1.6 Ao V2 mean: 109.4 cm/sec MV dec time: 0.24 sec Ao mean P.3 mmHg Ao V2 VTI: 25.4 cm LV V1 max P.6 mmHg TR max jonathan: 197.5 cm/sec LV V1 mean P.7 mmHg TR max P.1 mmHg LV V1 max: 118.7 cm/sec LV V1 mean: 75.9 cm/sec LV V1 VTI: 20.0 cm PA V2 max: 119.4 cm/sec Med Peak E' Jonathan: 6.4 cm/sec PA max P.7 mmHg Med E/e': 15.9 PA acc time: 0.11 sec Lat Peak E' Jonathan: 7.4 cm/sec Lat E/e': 13.8 PA pr(Accel): 29.9 mmHg Pulm Sys Jonathan: 76.2 cm/sec Pulm Kimball Jonathan: 61.9 cm/sec Pulm S/D: 1.2 Procedure A complete two-dimensional transthoracic echocardiogram was performed (2D, M-mode, Doppler and color flow Doppler). Left Ventricle The left ventricular size, thickness and function are normal. The left ventricular ejection fraction is normal. Ejection Fraction = 55-60%. The left ventricular wall motion is normal. Right Ventricle The right ventricle is normal in size and function. Atria Normal left and right atrial size and function. Mitral Valve There is no mitral regurgitation noted. Tricuspid Valve There is trace tricuspid regurgitation. Right ventricular systolic pressure is normal. Aortic Valve The aortic valve is trileaflet. No hemodynamically significant valvular aortic stenosis. No aortic regurgitation is present. Pulmonic Valve There is no pulmonic valvular regurgitation. Great Vessels The aortic root is normal size. Pericardium/Pleura Small pericardial effusion (<1cm). There are no echocardiographic indications of cardiac tamponade. Interpretation Summary The left ventricular size, thickness and function are normal The right ventricle is normal in size and function. There is trace tricuspid regurgitation. Small pericardial effusion (<1cm) There are no echocardiographic indications of cardiac tamponade. MD Michael Murrell 10/27/2019 03:49 PM
--- NOTE | 2019-10-27 22:12 | PN ---
Progress Note (short form) - Note Progress Note: ID CONSULT DICTATED
--- NOTE | 2019-10-28 00:43 | CONS ---
DATE OF CONSULTATION: DATE OF DICTATION: 10/27/2019 INFECTIOUS DISEASE CONSULTATION HISTORY OF PRESENT ILLNESS: The patient is a 54-year-old female evaluated for possible pneumonia. She was admitted to the hospital to the emergency room on October 27, 2019. She presented with complaints of chest pain. The patient was recently admitted to [facility] in July 2019 with COVID-19 infection. She subsequently developed atrial fibrillation and was placed on Eliquis. She had undergone an ablation for atrial fibrillation approximately 1 week prior to admission at [facility]. She is now admitted with a 1-day history of persistent substernal burning chest pain associated with shortness of breath. She was unable to life flat because the pain became progressively worse. The pain and shortness of breath became progressively worse. She was evaluated in the emergency room where she was noted to be in no acute respiratory distress. She was evaluated for possible aortic dissection. A CAT scan of the chest was performed and showed no evidence of aneurysm. There was evidence of ground glass infiltrates present in the lung land. She was evaluated by tele rn and diagnosed with pericarditis. She was prescribed colchicine. At the present time she is awake and alert, she is in no acute respiratory distress. She is not on oxygen supplemental therapy. She denies any chest pain at the present time. No complaints of cough, sputum production, fever or chills. Since her diagnosis of COVID-19, she reports being home in quarantine. She denies any ill contacts. PAST MEDICAL HISTORY: Positive for COVID-19 infection diagnosed in July 2019. ALLERGIES: No known allergies. MEDICATION: Prior to admission include: 1. Metoprolol. 2. Lipitor. 3. Aspirin. SOCIAL HISTORY: Lives at home with her significant other. She is a nonsmoker, nondrinker. SYSTEMS REVIEW: Neurologic: No loss of consciousness, seizure activity, focal weakness. Cardiac: As per HPI. Respiratory: As per HPI. Gastrointestinal: Negative vomiting or diarrhea. Genitourinary: Negative for urinary tract infection. LABORATORY DATA: White count 9.0, hematocrit 37.5, platelets 248, creatinine 0.7. Liver enzymes normal. C-reactive protein 9.3. Urinalysis negative. COVID-19 pending. CAT scan of the chest, abdomen, and pelvis, there is no evidence of thoracic or abdominal aortic aneurysm. There is diffuse ground glass opacification suspicious for COVID-19. No acute pathology abdomen and pelvis. PHYSICAL EXAMINATION: General: On exam, she is awake and alert, she is comfortable, in no acute respiratory distress on room air. Vital signs: Temperature 98.5, blood pressure 104/67, pulse 105 regular, respirations 20 per minute. HEENT: Sclerae anicteric. Cardiovascular: Heart sounds S1, S2. Lungs: Clear. Abdomen: Soft, nontender. Extremities: Negative for edema. IMPRESSION: 1. Acute chest pain syndrome, unclear etiology. 2. Status post COVID-19 pneumonitis. 3. Possible exacerbation chronic obstructive pulmonary disease. Obtain cultures. Empiric antibiotic coverage for possible community-acquired pneumonia with ceftriaxone and Zithromax. Obtain legionella antigen. Cardiology and pulmonary followup. Will follow. Thank you for the kind referral. SHABANA PYLE M.D. [id number]
[2019-10-28] MEDS: SUCRALFATE 1 GM/10 ML UNIT DOSE CUPS PO SCH (09:24)
[2019-10-28] MEDS: APIXABAN 5 MG TABLET PO SCH (09:24)
[2019-10-28] MEDS: COLCHICINE 0.6 MG CAP PO SCH (09:24)
[2019-10-28] MEDS ORDERED: AZITHROMYCIN IVPB 500 MG/250 ML BAG IVPB SCH (10:00)
--- NOTE | 2019-10-28 11:52 | PN ---
Progress Note, Physician History of Present Illness: seen and examined today in [facility]. no overnight events. no new complaints. no further chest pain. states she is feeling better. - Current Medication List Current Medications: Active Medications Acetaminophen (Tylenol -) 650 mg PO Q6H PRN PRN Reason: PAIN LEVEL 6-10 Last Admin: 10/27/19 18:48 Dose: 650 mg Documented by: Apixaban (Eliquis -) 5 mg PO BID [facility] Last Admin: 10/28/19 09:24 Dose: 5 mg Documented by: Atorvastatin Calcium (Lipitor -) 40 mg PO HS [facility] Last Admin: 10/27/19 21:17 Dose: 40 mg Documented by: Colchicine (Colcrys) 0.6 mg PO BID [facility] Last Admin: 10/28/19 09:24 Dose: 0.6 mg Documented by: Ceftriaxone Sodium 1 gm/ (Dextrose) 50 mls @ 100 mls/hr IVPB ONCE THOMAS Last Admin: 10/27/19 14:25 Dose: 100 mls/hr Documented by: Azithromycin (Zithromax 500mg Ivpb (Pre-Docked)) 500 mg in 250 mls @ 250 mls/hr IVPB DAILY [facility] Last Admin: 10/28/19 09:24 Dose: 250 mls/hr Documented by: Sucralfate (Carafate Oral Suspension -) 1 gm PO BID [facility] Last Admin: 10/28/19 09:24 Dose: 1 gm Documented by: - Objective Vital Signs: Vital Signs Temperature 98.9 F 10/28/19 10:00 Pulse Rate 99 H 10/28/19 10:00 Respiratory Rate 20 10/28/19 10:00 Blood Pressure 102/63 10/28/19 10:00 O2 Sat by Pulse Oximetry (%) 96 10/28/19 09:00 Constitutional: Yes: Well Nourished, No Distress, Calm Eyes: Yes: Conjunctiva Clear, EOM Intact HENT: Yes: Atraumatic, Normocephalic Neck: Yes: Supple, Trachea Midline Cardiovascular: Yes: Regular Rate and Rhythm, S1, S2. No: Bradycardia, Tachycardia, Pulse Irregular, Bruit, JVD, Gallop, Murmur, Rub, S3, S4, Varicosities Respiratory: Yes: Regular, Rhonchi. No: Rales, SOB, Wheezes Gastrointestinal: Yes: Normal Bowel Sounds, Soft. No: Distention, Tenderness Musculoskeletal: Yes: WNL Extremities: Yes: WNL Edema: No Peripheral Pulses WNL: Yes Peripheral Pulses: Left Doralis Pedis: 2+, Right Dorsalis Pedis: 2+ Neurological: Yes: Alert, Oriented Psychiatric: Yes: Alert, Oriented Labs: CBC, BMP 10/27/19 05:45 10/27/19 06:00 INR, PTT INR 1.28 (0.83-1.09) H 10/26/19 22:00 - ....Imaging Chest X-ray: Report Reviewed, Image Reviewed EKG: Report Reviewed, Image Reviewed Other: Report Reviewed, Image Reviewed (tele-nsr, occ PVCs and apcs) Assessment/Plan 54 year old woman with a pmh HTN, HLD, COVID19 infection 07/2019, Afib on eliquis, s/p ablation 1 week ago at [facility], admitted with chest pain and sob and mildly elevated troponin. CTA chest done to r/o dissection showed no aneursym or dissection but a small pericardial effusion. Pt seen and examined today in nad. states she has been having substernal chest pain radiating to her back worsened by lying down and other positions and relieved by sitting up. also notes sob/jay that she has had since her COVID19 infection but has not worsened recently. no palpitations, pnd, orthopnea, or LE edema. No fever or chills. She has had 2 prior cardiac caths, most recent 02/2019 at [facility] at which time found to have normal coronary arteries. Chest pain -c/w pericarditis -not c/w ACS -elevated troponin with normal CK, have not trended up significantly, could be residual elevation post ablation -recent cardiac cath showed normal coronary arteries -no ischemia on ekg -recent Afib ablation and small pericardial effusion on CT supports pericarditis despite no obvious ECG findings -cont colchicine for 1 month -d/w Dr. Payan, EP who did her ablation and he agrees with above -echo confirmed small pericardial effusion, no tamponade, normal LV and RV, minimal valvular abnl -does not require an ischemic evaluation Afib-s/p ablation 1 week ago [facility] on admission -cont eliquis -outpatient fup Pt is acceptable for discharge from a cardiac standpoint. Can dc tele will see as needed. Please call with any additional questions.
--- NOTE | 2019-10-28 13:25 | PN ---
Progress Note, Physician History of Present Illness: FEELING BETTER C/O SL DYSPNEA AT REST, CHEST PAIN WHEN FLAT COVID TEST PENDING , BUT WAS NEGATIVE ONE WEEK AGO PRIOR TO PROCEDURE NO C/O COUGH/ SPUTUM NO F/C WBC WNL - Current Medication List Current Medications: Active Medications Acetaminophen (Tylenol -) 650 mg PO Q6H PRN PRN Reason: PAIN LEVEL 6-10 Last Admin: 10/27/19 18:48 Dose: 650 mg Documented by: Apixaban (Eliquis -) 5 mg PO BID [facility] Last Admin: 10/28/19 09:24 Dose: 5 mg Documented by: Atorvastatin Calcium (Lipitor -) 40 mg PO HS [facility] Last Admin: 10/27/19 21:17 Dose: 40 mg Documented by: Colchicine (Colcrys) 0.6 mg PO BID [facility] Last Admin: 10/28/19 09:24 Dose: 0.6 mg Documented by: Ceftriaxone Sodium 1 gm/ (Dextrose) 50 mls @ 100 mls/hr IVPB ONCE [facility] Last Admin: 10/27/19 14:25 Dose: 100 mls/hr Documented by: Azithromycin (Zithromax 500mg Ivpb (Pre-Docked)) 500 mg in 250 mls @ 250 mls/hr IVPB DAILY [facility] Last Admin: 10/28/19 09:24 Dose: 250 mls/hr Documented by: Sucralfate (Carafate Oral Suspension -) 1 gm PO BID [facility] Last Admin: 10/28/19 09:24 Dose: 1 gm Documented by: - Objective Vital Signs: Vital Signs Temperature 98.9 F 10/28/19 10:00 Pulse Rate 99 H 10/28/19 10:00 Respiratory Rate 20 10/28/19 10:00 Blood Pressure 102/63 10/28/19 10:00 O2 Sat by Pulse Oximetry (%) 96 10/28/19 09:00 Constitutional: Yes: No Distress Eyes: Yes: Conjunctiva Clear Cardiovascular: Yes: Regular Rate and Rhythm, S1, S2 Respiratory: Yes: CTA Bilaterally Gastrointestinal: Yes: Normal Bowel Sounds, Soft. No: Tenderness Labs: CBC, BMP 10/27/19 05:45 10/27/19 06:00 INR, PTT INR 1.28 (0.83-1.09) H 10/26/19 22:00 Assessment/Plan R/O PNEUMONIA R/O COVID-19 (LESS LIKELY) PERICARDITIS MAY SUBSTITUTE PO CEFTIN 500MG PO BID X 7D OUTPATIENT F/U WITH PMD
[2019-10-28] MEDS ORDERED: DEXTROSE 5%-WATER - 50 ML IVPB ONE (13:27)
[2019-10-28] MEDS ORDERED: cefTRIAXone SODIUM 1 GM VIAL ONE (13:27)
[2019-10-28] MEDS: CEFTRIAXONE 1 GM in DEXTROSE 5%-WATER - 50 ML IVPB SCH (13:41)
--- NOTE | 2019-10-28 16:03 | CON.PULM ---
Consult Consult Specialty:: PULM/CCM Referred by:: Hospitalist Reason for Consultation:: SOB - History of Present Illness Chief Complaint: CP & SOB History of Present Illness: 54 F, HTN, HLD, COVID19 infection 07/2019 (received Plaquenil), Afib on eliquis, and s/p ablation 1 week ago at [facility]. Admitted via the ER Due to chest pain and SOB. CTA chest : No PE / No aneursym or dissection / small pericardial effusion. No fever or chills. No hemoptysis or night sweats. No travel history or sick contacts. - History Source History Provided By: Patient Limitations to Obtaining History: No Limitations - Past Medical History Cardio/Vascular: Yes: HTN, Hyperlipdemia Pulmonary: Yes: Bronchitis, COPD, Pneumonia, Other (COVID19). No: Asthma, Cancer, Previously Intubated, Pulmonary Embolus, Pulmonary Fibrosis ...LMP: 09/05/11 Infectious Disease: Yes: Other (COVID-19) - Alcohol/Substance Use Hx Alcohol Use: No History of Substance Use: reports: None - Smoking History Smoking history: Never smoked Have you smoked in the past 12 months: No Aproximately how many cigarettes per day: 40 If you are a former smoker, when did you quit?: 2007 - Social History ADL: Independent Home Medications - Allergies Allergies/Adverse Reactions: Allergies Allergy/AdvReac Type Severity Reaction Status Date / Time No Known Drug Allergies Allergy Verified 10/26/19 21:25 - Home Medications Home Medications: Ambulatory Orders Atorvastatin Ca [Lipitor] 20 mg PO HS 07/14/19 Metoprolol Succinate [Toprol Xl] 25 mg PO BID 07/14/19 Acetaminophen [Tylenol .Regular Strength -] 650 mg PO Q4H PRN tablet 07/21/19 Apixaban [Eliquis -] 5 mg PO BID #60 tablet 07/21/19 Pantoprazole Sodium [Protonix] 40 mg PO DAILY 10/27/19 Sucralfate Oral Suspension [Carafate Oral Suspension -] 1 gm PO BID 10/27/19 Colchicine [Colcrys] 0.6 mg PO BID 30 Days #60 cap 10/28/19 Review of Systems - Review of Systems Constitutional: reports: Malaise. denies: Chills, Fever, Night Sweats, Unintentional Wgt. Loss HENT: reports: Other (Alopecia) Neck: reports: No Symptoms Cardiovascular: reports: Chest Pain, Shortness of Breath. denies: Edema, Palpitations Respiratory: reports: Cough, Snoring, SOB, SOB on Exertion. denies: Hemoptysis, Orthopnea, PND, Wheezing Gastrointestinal: reports: No Symptoms Genitourinary: reports: No Symptoms Breasts: reports: No Symptoms Reported Musculoskeletal: reports: No Symptoms Integumentary: reports: No Symptoms Neurological: reports: No Symptoms Endocrine: reports: No Symptoms Hematology/Lymphatic: reports: No Symptoms Psychiatric: reports: No Symptoms Physical Exam Vital Sings: Vital Signs Temperature 98.5 F 10/28/19 14:16 Pulse Rate 99 H 10/28/19 14:16 Respiratory Rate 20 10/28/19 14:16 Blood Pressure 103/57 L 10/28/19 14:16 O2 Sat by Pulse Oximetry (%) 96 10/28/19 09:00 Constitutional: Yes: No Distress, Obese Eyes: Yes: Conjunctiva Clear, EOM Intact HENT: Yes: Atraumatic, Normocephalic Neck: Yes: Supple, Trachea Midline Cardiovascular: Yes: Regular Rate and Rhythm Respiratory: Yes: Diminished. No: Accessory Muscle Use, Rales, Rhonchi, SOB, SOB on Exertion, Stridor, Tachypnea, Wheezes ...Inspection: Yes: WNL ...Clubbing: No Gastrointestinal: Yes: Normal Bowel Sounds, Soft, Abdomen, Obese Renal/: Yes: WNL Musculoskeletal: Yes: WNL Extremities: Yes: WNL Edema: Yes Peripheral Pulses WNL: Yes Integumentary: Yes: WNL Neurological: Yes: WNL, Alert, Oriented ...Motor Strength: WNL Psychiatric: Yes: WNL, Alert, Oriented Labs: CBC, BMP 10/27/19 05:45 10/27/19 06:00 Imaging - Results Chest X-ray: Report Reviewed, Image Reviewed Cat Scan: Report Reviewed, Image Reviewed Problem List - Problems (1) Chest pain Code(s): R07.9 - CHEST PAIN, UNSPECIFIED (2) Elevated troponin Code(s): R79.89 - OTHER SPECIFIED ABNORMAL FINDINGS OF BLOOD CHEMISTRY (3) A-fib Code(s): I48.91 - UNSPECIFIED ATRIAL FIBRILLATION (4) Pericardial effusion Code(s): I31.3 - PERICARDIAL EFFUSION (NONINFLAMMATORY) (5) Suspected COVID-19 virus infection Code(s): R68.89 - OTHER GENERAL SYMPTOMS AND SIGNS Assessment/Plan IMP: Do not suspect PNA R/O OSAS PLAN: Will need sleep workup. No smoking Outpatient PFTs Cardiac workup per Cardiology There is no Pulmonary contraindication for DC Thank you. Dr Fabian AYDEN Screen - AYDEN History Previously diagnosed with Sleep Apnea: No If Yes, currently using CPAP to treat your AYDEN: No - SNORING Do you snore loudly (enough to be heard thru closed doors)?: Yes - TIRED Do you often feel tired, fatigued, or sleepy during daytime?: Yes - OBSERVED Has anyone observed you stop breathing during your sleep?: No - BLOOD PRESSURE Do you have or are being treated for high blood pressure?: Yes - BMI Answer Y if weight exceeds amount listed for your height: Yes .: HEIGHT & WEIGHT (lbs): 4'10" 167lbs; 4'11" 175 lbs; 5'0" 179lbs;. 5'1" 185lbs; 5'2" 191lbs; 5'3" 197lbs;. 5'4" 204lbs; 5'5" 210lbs; 5'6" 216lbs;. 5'7" 223lbs; 5'8" 230lbs; 5'9" 237lbs;. 5'10" 243lbs; 5'11" 250lbs; 6' 258lbs;. 6'1" 265lbs; 6'2" 272lbs; 6'3" 279lbs;. 6'4" 287lbs; 6'5" 295lbs - AGE Is your age over 50 yrs old?: Yes - NECK CIRCUMFERENCE Neck Circumference 40cm: Yes - GENDER Male: No - SCORE Total Score: 6 Score Interpretation: High Risk of AYDEN .: Interpretation: Score 0-2: Low Risk AYDEN. Score 3-4: Intermediate Risk AYDEN. Score 5-8: High Risk AYDEN
[2019-10-28 17:19] VITALS: BP 108/58; PULSE 100; TEMP 98.6
--- NOTE | 2019-10-28 17:43 | PN ---
Teaching Attending Note Name of Resident: Rolando Wynn ATTENDING PHYSICIAN STATEMENT I saw and evaluated the patient. I reviewed the resident's note and discussed the case with the resident. I agree with the resident's findings and plan as documented. SUBJECTIVE: Seen and examined at bedside. Patient reports mild dyspnea but is satting well on room air. Reports chest pain is significantly improved since starting colchicine. Discussed case with pulmonary and cardiology and patient is medically cleared for discharge. She will follow-up with cardiology she will follow-up as an outpatient with cardiology and pulmonology. OBJECTIVE: Last Vital Signs Temp Pulse Resp BP Pulse Ox 98.6 F 100 H 20 108/58 L 96 10/28/19 17:00 10/28/19 17:00 10/28/19 17:00 10/28/19 17:00 10/28/19 09:00 PE: per resident notes Labs/Imaging: reviewed ASSESSMENT AND PLAN: 54 year old woman with a pmh HTN, HLD, COVID19 infection 07/2019, Afib on eliquis, s/p ablation 1 week ago at [facility], admitted with chest pain and sob and mildly elevated troponin. Patient was ultimately found to have pericarditis presumed to be a complication of patient's recent ablation. Patient was started on colchicine with improvement in pain. She is currently hemodynamically stable on room air. CT chest abdomen pelvis negative for pulmonary embolus but did show bilateral groundglass opacities which are likely a result of the patient's prior COVID infection in July. Patient cleared for discharge by cardiology and pulmonary.
--- NOTE | 2019-10-28 17:45 | DS ---
Physical Exam: SUBJECTIVE: Patient seen and examined at bedside. The patient reports pain in her chest radiating to her back worse when lying down and leaning forward. OBJECTIVE: Vital Signs Period Temp Pulse Resp BP Sys/Kimball Pulse Ox Last 24 Hr 97.7 F-99.0 F 80-105 20-20 98-111/53-67 94-96 PHYSICAL EXAM GENERAL: The patient is awake, alert, and fully oriented, in no acute distress. HEAD: Normal with no signs of trauma. EYES: Extraocular movements intact. ENT: Ears normal, nares patent, oropharynx clear without exudates, moist mucous membranes. NECK: Trachea midline, full range of motion, supple. LUNGS: Breath sounds equal, clear to auscultation bilaterally, no wheezes, no c rackles, no accessory muscle use. HEART: Regular rate and rhythm, S1, S2 without murmur, rub or gallop. ABDOMEN: Soft, nontender, nondistended, normoactive bowel sounds, no guarding, no rebound, no masses. EXTREMITIES: 2+ pulses, warm, well-perfused, no edema. NEUROLOGICAL: Normal speech, gait not observed. PSYCH: Normal mood, normal affect. SKIN: Warm, dry, normal turgor, no rashes or lesions noted. LABS Laboratory Results - last 24 hr 10/27/19 10/28/19 20:07 05:45 D-Dimer 1029 H Ferritin 242.6 LD Total 156 HOSPITAL COURSE: Date of Admission:10/27/19 54 year old woman with a past medical history that includes HTN, HLD, COVID19 infection in 07/2019, AFib on Eliquis, s/p ablation 1 week ago at [facility], who presented to the emergency room with chest pain and difficulty breathing. The patient was found to have mildly elevated troponin. ECG showed tachycardic NSR with no obvious signs of pericarditis. Based on the evidence, the Senior Business Objects Developer felt that the patient was nonetheless most likely suffering from a case of pericarditis secondary to her recent ablation 1 week ago; he also said in his report that no ischemic evaluation is required. Recent cardiac cath also showed normal arteries. ECHO found a small pericardial effusion. The patient was started on colchicine with improvement in pain. A CT chest, abdomen, and pelvis was negative for a pulmonary embolus but did show bilateral groundglass opacities likely secondary to the patient's prior COVID infection in July. An obstructive sleep apnea screen was also found to be positive during the hospital admission. The patient was cleared for discharge by both Cardiology and Pulmonary. The patient was told to follow up with Cardiology and Pulmonology outpatient. Date of Discharge: 10/28/19 Minutes to complete discharge: 50 Discharge Summary Problems reviewed: Yes Reason For Visit: PERICARDIAL EFFUSION, ELEVATED TROPONIN LEVEL Current Active Problems Chest pain (Acute) Elevated troponin (Acute) A-fib (Chronic) Pericardial effusion (Chronic) Condition: Stable - Instructions Diet, Activity, Other Instructions: You were admitted to the hospital due to chest pain. During your hospital stay, you were evaluated with lab work, blood work, and imaging. Based on our evaluation, you were found to have inflammation of the surrounding membrane of the heart, called "pericarditis". You were treated with medications. Please continue to take the anti-inflammatory medication Colchicine, and follow up with the botany technician regarding your pericarditis. You were also found to be high risk for obstructive sleep apnea, which is a risk factor for heart problems. Please follow up with the track and field coach for obstructive sleep apnea. Imaging Findings An ECHO of your heart found a small amount of fluid around your heart (less than 1 centimeter). A CAT scan found findings suggestive for inflammation of the lung. Medications Please START taking the anti-inflammatory medication Colchicine 0.6 mg every 12 hours by mouth for your pericarditis. Please take all of your medications as prescribed. Follow ups Please follow up with the botany technician Dr. Basil Wade within 1 week regarding the pericarditis. Please follow up with the track and field coach Dr. Pancho Fabian within 1 week to check for obstructive sleep apnea. Please follow up with the primary care physician Dr. Lobito Murry within 1 week. If you experience worsening symptoms, chest pain, chest pressure, difficulty breathing, or worsening of your condition, please come back to the emergency room. Referrals: Lobito Murry MD [Primary Care Provider] - 1 Week Basil Wade MD [Staff Physician] - 1 Week (Follow up - Pericarditis. Had a s/p Ablation for A-Fib 1 week ago at [facility]) Pancho Fabian MD [Staff Physician] - 1 Week (Obstructive Sleep Apnea screening score of 6 (High risk). Outpatient PFTs per Pulmonary Consult note for 10/27/19 hospital admission.) Disposition: HOME - Home Medications Comprehensive Discharge Medication List: Ambulatory Orders Atorvastatin Ca [Lipitor] 20 mg PO HS 07/14/19 Metoprolol Succinate [Toprol Xl] 25 mg PO BID 07/14/19 Acetaminophen [Tylenol .Regular Strength -] 650 mg PO Q4H PRN tablet 07/21/19 Apixaban [Eliquis -] 5 mg PO BID #60 tablet 07/21/19 Pantoprazole Sodium [Protonix] 40 mg PO DAILY 10/27/19 Sucralfate Oral Suspension [Carafate Oral Suspension -] 1 gm PO BID 10/27/19 Colchicine [Colcrys] 0.6 mg PO BID 30 Days #60 cap 10/28/19 This patient is new to me today: Yes Date on this admission: 10/28/19 Emergency Visit: Yes ED Registration Date: 10/27/19 Care time: The patient presented to the Emergency Department on the above date and was hospitalized for further evaluation of their emergent condition. Critical Care patient: No - Discharge Referral Referred to [facility] Med [facility] No ATTENDING PHYSICIAN STATEMENT I saw and evaluated the patient. I reviewed the resident's note and discussed the case with the resident. I agree with the resident's findings and plan as documented. SUBJECTIVE: OBJECTIVE: ASSESSMENT AND PLAN:
== END 2019-10-28 19:18 | disposition home or self-care (01) | DRG 316 ==
LOC: JER 21:20 → JERBED 10-27 00:08 → J4W 10-27 18:48
PROVIDERS: ADMIT Internal Medicine; ATTEND Internal Medicine
DX: I31.9 Disease of pericardium, unspecified (principal); I31.3 Pericardial effusion (noninflammatory); R07.9 Chest pain, unspecified; I48.91 Unspecified atrial fibrillation; I10 Essential (primary) hypertension; E78.5 Hyperlipidemia, unspecified; E66.9 Obesity, unspecified; Z68.33 Body mass index [BMI] 33.0-33.9, adult
CPT/HCPCS: 36415; 71275-TC; 74174-TC; 80053; 80061; 82550; 82728; 83036; 83605; 83615; 83721; 83735; 84484; 84703; 85025; 85379; 85610; 85730; 86140; 86850; 86900; 86901; 87040; 87899; 93005; 93010; 93306-TC; 99285-25; J0131; Q9967; U0003

== ENCOUNTER 2019-12-22 18:54 | Emergency (ER) | payer OTHER ==
[2019-12-22 19:06] VITALS: TEMP 97; BMI 34.2
--- NOTE | 2019-12-22 19:19 | PDOC ---
History of Present Illness - General Chief Complaint: Shortness of Breath Stated Complaint: SOB/BACK PAIN - History of Present Illness Initial Comments: 54 yo female with PMH of HTN, HLD, COPD, Covid (July), A. Fib on eliquis s/p ablation, Pericarditis presents with Chest Pain. Chest pain has been ongoing for 2 days, non-exertional, sharp, pleuritic, radiates to back/neck. She endorss SOB, fatigue. She denies headache, fevers, chills, nvd, abd pain, dysuria. She was COVID+ in july which lead to development of Afib requiring ablation (october) which lead to developing pericarditis. She is currently on eliquis and prednisone. No recent travel or surgery. Past History - Medical History Allergies/Adverse Reactions: Allergies Allergy/AdvReac Type Severity Reaction Status Date / Time No Known Drug Allergies Allergy Verified 10/26/19 21:25 Home Medications: Ambulatory Orders Atorvastatin Ca [Lipitor] 20 mg PO HS 07/14/19 Metoprolol Succinate [Toprol Xl] 25 mg PO BID 07/14/19 Acetaminophen [Tylenol .Regular Strength -] 650 mg PO Q4H PRN tablet 07/21/19 Apixaban [Eliquis -] 5 mg PO BID #60 tablet 07/21/19 Pantoprazole Sodium [Protonix] 40 mg PO DAILY 10/27/19 Sucralfate Oral Suspension [Carafate Oral Suspension -] 1 gm PO BID 10/27/19 Colchicine [Colcrys] 0.6 mg PO BID 30 Days #60 cap 10/28/19 Colchicine 0.6 mg PO BID 5 Days #10 capsule 12/22/19 Anemia: No Asthma: Yes Cancer: No Cardiac Disorders: Yes (A fib) CVA: No COPD: Yes CHF: No Dementia: No Diabetes: No GI Disorders: No Disorders: No HTN: Yes Hypercholesterolemia: Yes Liver Disease: No Seizures: No Thyroid Disease: No - Surgical History Abdominal Surgery: No Appendectomy: No Cardiac Surgery: Yes (ablation 10/2019) Cholecystectomy: No Lung Surgery: No Neurologic Surgery: No Orthopedic Surgery: Yes (r 4th finger sx) - Reproductive History Is Patient Now?: No - Immunization History Immunization Up to Date: Yes - Psycho-Social/Smoking History Smoking History: Former smoker Have you smoked in the past 12 months: No Number of Cigarettes Smoked Daily: 40 If you are a former smoker, when did you quit?: 2007 Information on smoking cessation initiated: No - Substance Abuse Hx (Audit-C & DAST Scrn) How often the patient has a drink containing alcohol: Never Score: In Men: 4 or > Positive; In Women: 3 or > Positive: 0 Screen Result (Pos requires Nsg. Audit-10AR): Negative In the last yr the pt used illegal drug/Rx for NonMed reason: No Score: Yes response is considered Positive: 0 Screen Result (Positive result requires Nsg. DAST-10): Negative Review of Systems - Review of Systems Able to Perform ROS?: Yes Constitutional: Yes: Malaise. No: Chills, Fever HEENTM: Yes: Other (neck pain). No: Recent change in vision, Double Vision Respiratory: Yes: Shortness of Breath. No: Cough, Orthopnea Cardiac (ROS): Yes: Chest Pain ABD/GI: No: Constipated, Diarrhea, Nausea, Vomiting : No: Dysuria, Discharge Musculoskeletal: Yes: Neck Pain. No: Joint Pain, Muscle Pain Integumentary: No: Lesions, Lumps, Pallor Neurological: No: Numbness, Tingling, Weakness Psychiatric: No: Anxiety, Depression, Mood Swings Endocrine: No: Intolerance to Cold, Intolerance to Heat *Physical Exam - Vital Signs Last Vital Signs Temp Pulse Resp BP Pulse Ox 97.0 F L 109 H 16 119/78 94 L 12/22/19 18:57 12/22/19 18:57 12/22/19 18:57 12/22/19 18:57 12/22/19 18:57 ED Treatment Course - LABORATORY CBC & Chemistry Diagram: 12/22/19 20:30 12/22/19 20:30 Medical Decision Making - Medical Decision Making 54 yo female with PMH of HTN, HLD, COPD, Covid (July), A. Fib on eliquis s/p ablation, Pericarditis. Pt currently taking Eliquis, Prednisone. Pt presents with sharp pleuritic chest pain and shortness of breath WBC 12.3 Trop #1 negative Trop #2... CXR- no acute changes, no pneumonia, no pleural effusion, no pneumothorax Bedside US- trace pericardial effusion, no diastolic collapse (Per Dr. Aguilar) Consult to Dr. Quinonez for management of recurrent pericarditis suggested to continue her Colchicine and follow up outpatient with cardiology. Discharge - Discharge Information Problems reviewed: Yes Clinical Impression/Diagnosis: Chest pain Condition: Stable - Admission No - Additional Discharge Information Prescriptions: Colchicine 0.6 mg PO BID 5 Days #10 capsule - Follow up/Referral Referrals: Lobito Murry MD [Primary Care Provider] - Jose Angel Quinonez MD [Staff Physician] - Thomas Berg MD [Staff Physician] - Eliazar Wright MD [Staff Physician] - - Patient Discharge Instructions Additional Instructions: Continue your home regimen medications and start taking the Colchicine as prescribed. Follow up with your PCP and the referred Digester Cook within 5 days. Return to the ED if your condition worsens and/or you experience chest pain, shortness of breath, fevers, chills, light headedness, fainting. - Post Discharge Activity
--- OUTSIDE RECORDS SUMMARY | 2019-12-22 19:43 | XMS ---
:1965 Author Organization [facility] Support Name Relationship Address Phone Zahroof Val[employer]BAN[employer] Unavailable [address] [place] [address] JOO RHODES [address] [place] [address] JOO RHODES Parent [address] [place] [address] Re-disclosure Warning The records that you are about to access may contain information from federally- assisted alcohol or drug abuse programs. If such information is present, then the following federally mandated warning applies: This information has been disclosed to you from records protected by federal confidentiality rules (42 CFR part 2). The federal rules prohibit you from making any further disclosure of this information unless further disclosure is expressly permitted by the written consent of the person to whom it pertains or as otherwise permitted by 42 CFR part 2. A general authorization for the release of medical or other information is NOT sufficient for this purpose. The Federal rules restrict any use of the information to criminally investigate or prosecute any alcohol or drug abuse patient.The records that you are about to access may contain highly sensitive health information, the redisclosure of which is protected by Article 27-F of the [facility] Public Health law. If you continue you may haveaccess to information: Regarding HIV / AIDS; Provided by facilities licensed or operated by the [facility] Office of Mental Health; or Provided by the [facility] Office for People With Developmental Disabilities. If such information is present, then the following [facility] mandated warning applies: This information has been disclosed to you from confidential records which are protected by state law. State law prohibits you from making any further disclosure of this information without the specific written consent of the person to whom it pertains, or as otherwise permitted by law. Any unauthorized further disclosure in violation of state law may result in a fine or mcc sentence or both. A general authorization for the release of medical or other information is NOT sufficient authorization for further disclosure. Insurance Providers Payer name Policy type Policy ID Covered Covered libertarian's Policy P byron / Coverage libertarian ID relationship to Soto Inf ormation type soto [employer]ET[employer] HMO [id number] HU [id number] [employer] PPO [id number] [employer] PPO [id number] [place] [id number] [place] [id number] HEALTH PLANS [place] [id number] OT [id number] HEALTH PLANS Results ID Date Data Source [id number] 12/06/2019 02:51:00 PM EDT [facility] Name Value Range Interpretation Description Data Sup porting Code Source(s) Document(s ) SARS [facility] coronavirus 2 RNA This lab was ordered by [facility] and reported by [facility]. ID Date Data Source [id number] 10/27/2019 04:30:00 AM EDT [facility] Name Value Range Interpretation Description Data Sup porting Code Source(s) Document(s ) SARS [facility] coronavirus 2 RNA This lab was ordered by [facility] and reported by [facility]. ID Date Data Source [id number] 10/19/2019 01:33:[address] [facility] Name Value Range Interpretation Code Description Data Tammy rce(s) Supporting Document(s ) SARS-CoV-2 [facility] Ql CHERRY+probe This lab was ordered by [facility] nd reported by [facility]. ID Date Data Source [id number] 07/12/2019 12:00:00 AM EDT [facility] Name Value Range Interpretation Code Description Data Tammy rce(s) Supporting Document(s ) 2019-nCoV [facility] RNA XXX CHERRY+probe- Imp This lab was ordered by [facility] and reported by [facility] Procedure
--- NOTE | 2019-12-22 20:47 | PDOC ---
Attending Attestation - Resident Resident Name: Saima Farnsworth - ED Attending Attestation I have performed the following: I have examined & evaluated the patient, The case was reviewed & discussed with the resident, I agree w/resident's findings & plan, Exceptions are as noted - HPI HPI: 12/23/19 06:01 See resident HPI - Physicial Exam PE: 12/23/19 06:01 Agree with documented exam - Medical Decision Making 12/23/19 06:02 Given cc and recent hx, likely recurrence of pericarditis will eval for infectious, ischemic, pulm pathology f/u labs, cxr, ekg ekg unchanged POCUS consistent with small pericardial effusion w/o tamponade physiology colchicine, close cards f/u strict return precautions Discharge - Discharge Information Problems reviewed: Yes Clinical Impression/Diagnosis: Chest pain Condition: Stable Disposition: HOME - Additional Discharge Information Prescriptions: Colchicine 0.6 mg PO BID 5 Days #10 capsule - Follow up/Referral Referrals: Lobito Murry MD [Primary Care Provider] - Jose Angel Quinonez MD [Staff Physician] - Thomas Berg MD [Staff Physician] - Eliazar Wright MD [Staff Physician] - - Patient Discharge Instructions Additional Instructions: Continue your home regimen medications and start taking the Colchicine as prescribed. Follow up with your PCP and the referred [employer] within 5 days. Return to the ED if your condition worsens and/or you experience chest pain, shortness of breath, fevers, chills, light headedness, fainting. - Post Discharge Activity
[2019-12-22 21:13] LABS: HEMATOCRIT 44.5 % (32.4-45.2); HEMOGLOBIN 15.2 GM/dL (10.7-15.3); MCH 30.8 pg (25.7-33.7); MCHC 34.2 g/dl (32.0-36.0); MEAN CELL VOLUME 89.8 fl (80-96); MEAN PLT VOLUME 7.4 fl (7.5-11.1); PLATELET COUNT 260 K/MM3 (134-434); RBC 4.95 M/mm3 (3.60-5.2); RDW 16.2 % (11.6-15.6); WHITE BLOOD COUNT 12.3 K/mm3 (4.0-10.0)
[2019-12-22 21:44] LABS: ALBUMIN 3.5 g/dl (3.4-5.0); ALK PHOS 94 U/L (45-117); ANION GAP 7 MMOL/L (8-16); BILIRUBIN,TOTAL 1.6 mg/dL (0.2-1); BLOOD UREA NITROGEN 12.6 mg/dL (7-18); CHLORIDE 102 mmol/L (98-107); CO2 29 mmol/L (21-32); CREATININE 0.9 mg/dL (0.55-1.3); GLUCOSE,RANDOM 117 mg/dL (74-106); POTASSIUM 4.3 mmol/L (3.5-5.1); SGOT/AST 20 U/L (15-37); SGPT/ALT 31 U/L (13-61); SODIUM 138 mmol/L (136-145)
[2019-12-22 23:09] VITALS: BP 117/73; PULSE 82
--- NOTE | 2019-12-23 12:37 | EKG ---
Test Reason : Blood Pressure : / mmHG Vent. Rate : 100 BPM Atrial Rate : 100 BPM P-R Int : 144 ms QRS Dur : 080 ms QT Int : 330 ms P-R-T Axes : 040 019 040 degrees QTc Int : 425 ms NORMAL SINUS RHYTHM NONSPECIFIC ST ABNORMALITY ABNORMAL ECG Confirmed by SHABANA CINTRON MD ([id number]) on 12/23/2019 12:37:16 PM Referred By: Confirmed By:SHABANA CINTRON MD
== END 2019-12-23 00:53 | disposition home or self-care (01) ==
LOC: JER 18:54
DX: R07.9 Chest pain, unspecified (principal)
CPT/HCPCS: 36415; 71046-TC-FY; 80053; 82550; 84484; 85027; 93005; 93010; 99285-25

== ENCOUNTER 2020-06-07 19:11 | Inpatient (IN) | payer OTHER ==
[2020-06-07 21:26] LABS: BASO % 0.8 % (0-2.0); EOS % 0.6 % (0-4.5); HEMATOCRIT 39.7 % (32.4-45.2); HEMOGLOBIN 14.2 GM/dL (10.7-15.3); LYMPH % 4.8 % (8-40); MCH 32.8 pg (25.7-33.7); MCHC 35.8 g/dl (32.0-36.0); MEAN CELL VOLUME 91.5 fl (80-96); MONO % 6.4 % (3.8-10.2); NEUT % 87.4 % (42.8-82.8); PLATELET COUNT 375 K/MM3 (134-434); RBC 4.34 M/mm3 (3.60-5.2); RDW 15.5 % (11.6-15.6); WHITE BLOOD COUNT 8.7 K/mm3 (4.0-10.0)
[2020-06-07 21:34] LABS: INR 1.2 (0.83-1.09); PROTHROMBIN TIME (PATIENT) 14.5 SEC (9.7-13.0)
[2020-06-07 21:37] LABS: ACTIVATED PTT 31.7 SECONDS (25.2-36.5)
[2020-06-07 21:48] LABS: CHLORIDE 96 mmol/L (98-107); POTASSIUM 3.2 mmol/L (3.5-5.1); SODIUM 136 mmol/L (136-145)
[2020-06-07 21:50] LABS: CALCIUM 8.5 mg/dL (8.5-10.1)
[2020-06-07 21:51] LABS: ALBUMIN 3.4 g/dl (3.4-5.0); ANION GAP 10 MMOL/L (8-16); BLOOD UREA NITROGEN 14.7 mg/dL (7-18); CO2 31 mmol/L (21-32); GLUCOSE,RANDOM 100 mg/dL (74-106)
[2020-06-07 21:54] LABS: CREATININE 0.9 mg/dL (0.55-1.3); SGOT/AST 24 U/L (15-37); SGPT/ALT 33 U/L (13-61)
[2020-06-07 21:55] LABS: BILIRUBIN,TOTAL 1.8 mg/dL (0.2-1); TOT PROT 6.6 g/dl (6.4-8.2)
[2020-06-07 21:56] LABS: ALK PHOS 93 U/L (45-117)
[2020-06-08] MEDS ORDERED: AZITHROMYCIN IVPB 500 MG in DEXTROSE 5%-WATER - 250 ML IVPB ONE (01:14)
[2020-06-08] MEDS ORDERED: DEXAMETHASONE SOD PHOSPHATE 4 MG/1 ML VIAL IVPUSH ONE (01:32)
[2020-06-08] MEDS ORDERED: POTASSIUM CHLORIDE TABS 10 MEQ TABLET.ER (FP) PO ONE (01:33)
[2020-06-08] MEDS ORDERED: POTASSIUM CHLORIDE TABS 20 MEQ TABLET.ER (FP) PO ONE (02:00)
[2020-06-08] MEDS ORDERED: DEXAMETHASONE SOD PHOSPHATE 10 MG/1 ML VIAL ONE (02:00)
[2020-06-08] MEDS ORDERED: AZITHROMYCIN IVPB 500 MG/250 ML BAG IVPB ONE (02:01)
[2020-06-08] MEDS ORDERED: CEFTRIAXONE 1 GM/50 ML BAG ONE (02:01)
[2020-06-08 06:04] LABS: BASO % 0.5 % (0-2.0); EOS % 0.3 % (0-4.5); HEMATOCRIT 38.6 % (32.4-45.2); HEMOGLOBIN 14.1 GM/dL (10.7-15.3); LYMPH % 8.4 % (8-40); MCH 33.2 pg (25.7-33.7); MCHC 36.4 g/dl (32.0-36.0); MEAN CELL VOLUME 91.1 fl (80-96); MEAN PLT VOLUME 6.6 fl (7.5-11.1); MONO % 4.2 % (3.8-10.2); NEUT % 86.6 % (42.8-82.8); PLATELET COUNT 363 K/MM3 (134-434); RBC 4.24 M/mm3 (3.60-5.2); WHITE BLOOD COUNT 6.4 K/mm3 (4.0-10.0)
[2020-06-08 06:25] LABS: BLOOD UREA NITROGEN 15.8 mg/dL (7-18); CALCIUM 8.8 mg/dL (8.5-10.1)
[2020-06-08 06:26] LABS: ALBUMIN 3.1 g/dl (3.4-5.0)
[2020-06-08 06:28] LABS: CREATININE 0.9 mg/dL (0.55-1.3)
[2020-06-08 06:30] LABS: TOT PROT 6.4 g/dl (6.4-8.2)
[2020-06-08 11:31] LABS: URINE APPEARANCE CLEAR; URINE BILIRUBIN NEGATIVE (NEGATIVE); URINE COLOR YELLOW; URINE GLUCOSE (UA) NEGATIVE (NEGATIVE); URINE KETONE TRACE (NEGATIVE)
[2020-06-08 11:32] LABS: URINE LEUK ESTERASE NEGATIVE (NEGATIVE); URINE NITRITE NEGATIVE (NEGATIVE); URINE PROTEIN NEGATIVE (NEGATIVE); URINE RBC 13.4 /uL (0-23.9); URINE UROBILINOGEN 0.2 mg/dL (0.2-1.0); URINE WBC 72.1 /uL (0-25.8)
[2020-06-08 11:33] LABS: EPI CELLS 68.9 /uL (0-25.1); HYALINE CASTS 1.79 /uL (0-3.1); URINE BACTERIA 327.8 /uL (0-1359)
[2020-06-08 12:50] VITALS: BMI 33.9
[2020-06-08] MEDS ORDERED: ACETAMINOPHEN 325 MG TABLET (FP) PO PRN (13:23)
[2020-06-08] MEDS ORDERED: ALBUTEROL SO4 2.5/IPRATROPIUM 0.5 INH SOL 3 ML VIAL.NEB. NEB PRN (13:23)
[2020-06-08] MEDS: PANTOPRAZOLE 40 MG TABLET PO SCH (14:16)
[2020-06-08] MEDS ORDERED: methylPREDNISolone NA SUCC 40 MG/1 ML VIAL IVPUSH SCH (18:00)
[2020-06-08] MEDS: HEPARIN NA (PORCINE) 5,000 UNITS/ML 1ML VIAL SQ SCH (21:10)
[2020-06-08] MEDS: BUDESONIDE/FORMETEROL FUMARATE 80/4.5 mcg INHALER IH SCH (21:10)
[2020-06-08] MEDS: ATORVASTATIN CA 20 MG TABLET (FP) PO SCH (21:10)
[2020-06-09] MEDS ORDERED: CEFTRIAXONE 1 GM in DEXTROSE 5%-WATER - 50 ML IVPB SCH (10:00)
[2020-06-09] MEDS ORDERED: DEXAMETHASONE SOD PHOSPHATE 4 MG/1 ML VIAL IVPUSH ONE (10:00)
[2020-06-09] MEDS: AZITHROMYCIN IVPB 500 MG/250 ML BAG IVPB SCH (11:29)
[2020-06-09] MEDS: PANTOPRAZOLE 40 MG TABLET PO SCH (11:30)
[2020-06-09] MEDS: HEPARIN NA (PORCINE) 5,000 UNITS/ML 1ML VIAL SQ SCH ×2 (11:30→21:46)
[2020-06-09] MEDS: BUDESONIDE/FORMETEROL FUMARATE 80/4.5 mcg INHALER IH SCH ×2 (11:32→21:46)
[2020-06-09] MEDS ORDERED: methylPREDNISolone NA SUCC 40 MG/1 ML VIAL IVPUSH SCH (15:00)
[2020-06-09] MEDS: ATORVASTATIN CA 20 MG TABLET (FP) PO SCH (21:46)
[2020-06-10 08:17] LABS: CALCIUM 8.9 mg/dL (8.5-10.1); HEMATOCRIT 36.2 % (32.4-45.2); HEMOGLOBIN 12.9 GM/dL (10.7-15.3); MCH 32.6 pg (25.7-33.7); MCHC 35.6 g/dl (32.0-36.0); MEAN CELL VOLUME 91.6 fl (80-96); MEAN PLT VOLUME 7.3 fl (7.5-11.1); PLATELET COUNT 400 K/MM3 (134-434); RBC 3.95 M/mm3 (3.60-5.2); RDW 14.9 % (11.6-15.6); WHITE BLOOD COUNT 6.3 K/mm3 (4.0-10.0)
[2020-06-10 08:18] LABS: BLOOD UREA NITROGEN 10.6 mg/dL (7-18)
[2020-06-10 08:21] LABS: CREATININE 0.8 mg/dL (0.55-1.3)
[2020-06-10 08:22] LABS: BILIRUBIN,TOTAL 1.1 mg/dL (0.2-1)
[2020-06-10 08:23] LABS: TOT PROT 5.9 g/dl (6.4-8.2)
[2020-06-10 08:31] LABS: POTASSIUM 3.5 mmol/L (3.5-5.1)
[2020-06-10] MEDS: BUDESONIDE/FORMETEROL FUMARATE 80/4.5 mcg INHALER IH SCH ×2 (09:43→21:28)
[2020-06-10] MEDS: PANTOPRAZOLE 40 MG TABLET PO SCH (09:43)
[2020-06-10] MEDS: AZITHROMYCIN IVPB 500 MG/250 ML BAG IVPB SCH (09:43)
[2020-06-10] MEDS: HEPARIN NA (PORCINE) 5,000 UNITS/ML 1ML VIAL SQ SCH ×2 (09:44→21:27)
[2020-06-10] MEDS: methylPREDNISolone NA SUCC 40 MG/1 ML VIAL IVPUSH SCH ×2 (15:26→21:27)
[2020-06-10] MEDS: ATORVASTATIN CA 20 MG TABLET (FP) PO SCH (21:27)
[2020-06-11] MEDS: methylPREDNISolone NA SUCC 40 MG/1 ML VIAL IVPUSH SCH ×4 (02:53→21:57)
[2020-06-11 08:32] LABS: HEMATOCRIT 35.6 % (32.4-45.2); HEMOGLOBIN 12.7 GM/dL (10.7-15.3); MCH 32.9 pg (25.7-33.7); MCHC 35.7 g/dl (32.0-36.0); MEAN CELL VOLUME 92.3 fl (80-96); MEAN PLT VOLUME 6.9 fl (7.5-11.1); PLATELET COUNT 404 K/MM3 (134-434); RBC 3.86 M/mm3 (3.60-5.2); RDW 15.2 % (11.6-15.6); WHITE BLOOD COUNT 8.4 K/mm3 (4.0-10.0)
[2020-06-11 08:42] LABS: POTASSIUM 5.1 mmol/L (3.5-5.1)
[2020-06-11 08:54] LABS: BLOOD UREA NITROGEN 13.4 mg/dL (7-18); CALCIUM 9.3 mg/dL (8.5-10.1); CREATININE 0.8 mg/dL (0.55-1.3)
[2020-06-11 08:56] LABS: BILIRUBIN,TOTAL 0.6 mg/dL (0.2-1)
[2020-06-11] MEDS ORDERED: PT OWN MED DRAWER 7, Y5N ONE (10:19)
[2020-06-11] MEDS: PANTOPRAZOLE 40 MG TABLET PO SCH (10:22)
[2020-06-11] MEDS: AZITHROMYCIN IVPB 500 MG/250 ML BAG IVPB SCH (10:22)
[2020-06-11] MEDS: HEPARIN NA (PORCINE) 5,000 UNITS/ML 1ML VIAL SQ SCH ×2 (10:22→21:57)
[2020-06-11] MEDS: BUDESONIDE/FORMETEROL FUMARATE 80/4.5 mcg INHALER IH SCH ×2 (10:22→21:57)
[2020-06-11] MEDS ORDERED: ALBUTEROL SO4 0.083% IH SOL 2.5 MG/3 ML VIAL.NEB. NEB PRN (10:58)
[2020-06-11] MEDS: ALBUTEROL SO4 2.5/IPRATROPIUM 0.5 INH SOL 3 ML VIAL.NEB. NEB SCH ×3 (12:55→20:05)
[2020-06-11] MEDS: ATORVASTATIN CA 20 MG TABLET (FP) PO SCH (21:57)
[2020-06-12] MEDS: methylPREDNISolone NA SUCC 40 MG/1 ML VIAL IVPUSH SCH ×4 (02:59→21:05)
[2020-06-12] MEDS: ALBUTEROL SO4 2.5/IPRATROPIUM 0.5 INH SOL 3 ML VIAL.NEB. NEB SCH ×4 (08:48→20:54)
[2020-06-12] MEDS ORDERED: PT OWN MED DRAWER 7, Y5N ONE (09:44)
[2020-06-12] MEDS: AZITHROMYCIN 250 MG TABLET PO SCH (09:50)
[2020-06-12] MEDS: PANTOPRAZOLE 40 MG TABLET PO SCH (09:50)
[2020-06-12] MEDS: BUDESONIDE/FORMETEROL FUMARATE 80/4.5 mcg INHALER IH SCH ×2 (09:50→21:05)
[2020-06-12] MEDS: HEPARIN NA (PORCINE) 5,000 UNITS/ML 1ML VIAL SQ SCH ×2 (09:50→21:05)
[2020-06-12] MEDS: ATORVASTATIN CA 20 MG TABLET (FP) PO SCH (21:05)
[2020-06-13] MEDS: methylPREDNISolone NA SUCC 40 MG/1 ML VIAL IVPUSH SCH ×2 (02:10→10:53)
[2020-06-13] MEDS: ALBUTEROL SO4 2.5/IPRATROPIUM 0.5 INH SOL 3 ML VIAL.NEB. NEB SCH ×4 (08:26→20:31)
[2020-06-13] MEDS: PANTOPRAZOLE 40 MG TABLET PO SCH (11:11)
[2020-06-13] MEDS: predniSONE 20 MG TABLET (UD) PO SCH (11:12)
[2020-06-13] MEDS: AZITHROMYCIN 250 MG TABLET PO SCH (11:12)
[2020-06-13] MEDS: HEPARIN NA (PORCINE) 5,000 UNITS/ML 1ML VIAL SQ SCH ×2 (11:12→21:40)
[2020-06-13] MEDS: BUDESONIDE/FORMETEROL FUMARATE 80/4.5 mcg INHALER IH SCH (11:18)
[2020-06-13] MEDS: ATORVASTATIN CA 20 MG TABLET (FP) PO SCH (21:40)
[2020-06-13] MEDS: BUDESONIDE/FORMETEROL FUMARATE 160/4.5 mcg INHALER IH SCH (21:41)
[2020-06-14] MEDS: ALBUTEROL SO4 2.5/IPRATROPIUM 0.5 INH SOL 3 ML VIAL.NEB. NEB SCH ×3 (07:31→15:09)
[2020-06-14] MEDS: PANTOPRAZOLE 40 MG TABLET PO SCH (11:30)
[2020-06-14] MEDS: predniSONE 20 MG TABLET (UD) PO SCH (11:30)
[2020-06-14] MEDS: HEPARIN NA (PORCINE) 5,000 UNITS/ML 1ML VIAL SQ SCH (11:31)
[2020-06-14] MEDS: BUDESONIDE/FORMETEROL FUMARATE 160/4.5 mcg INHALER IH SCH (11:31)
[2020-06-14] MEDS: AZITHROMYCIN 250 MG TABLET PO SCH (11:31)
[2020-06-14] MEDS ORDERED: PT OWN MED DRAWER 7, Y5N ONE (12:05)
[2020-06-14 15:39] VITALS: BP 108/62; PULSE 83; TEMP 97.6
== END 2020-06-14 16:49 | disposition home or self-care (01) | DRG 190 ==
LOC: JER 19:11 → JERBED 06-08 01:34 → J8W 06-08 06:43
PROVIDERS: ADMIT Hospitalist; ATTEND Family Medicine
DX: J44.1 Chronic obstructive pulmonary disease with (acute) exacerbation (principal); J18.9 Pneumonia, unspecified organism; J98.11 Atelectasis; I10 Essential (primary) hypertension; E78.5 Hyperlipidemia, unspecified; I48.91 Unspecified atrial fibrillation; J45.909 Unspecified asthma, uncomplicated; E66.9 Obesity, unspecified; Z68.33 Body mass index [BMI] 33.0-33.9, adult
CPT/HCPCS: 36415; 71275-TC; 80053; 81003; 83615; 83735; 83880; 84484; 85025; 85027; 85379; 85610; 85730; 87040; 87086; 87449; 87899; 93005; 93010; 93306-TC; 94010; 94640; 94761; 97116-GP; 97161-GP; 99285-25; C9803; J1644; U0003

== ENCOUNTER 2021-08-18 18:05 | Emergency (ER) | payer BC, OTHER ==
[2021-08-18 18:16] VITALS: BP 123/83; PULSE 96; TEMP 98.5; BMI 36.9
[2021-08-18] MEDS ORDERED: BEBTELOVIMAB (EUA) 175 MG/2 ML VIAL IVPUSH ONE (18:21)
== END 2021-08-18 21:03 | disposition home or self-care (01) ==
LOC: JER 18:05
PROC: 3E033NZ Introduction of Analgesics, Hypnotics, Sedatives into Peripheral Vein, Percutaneous Approach (ICD-10-PCS; principal; 2021-08-18)
DX: U07.1 COVID-19 (principal)
CPT/HCPCS: 99284-25; M0222; Q0222

== ENCOUNTER 2023-12-03 19:07 | Emergency (ER) | payer BC ==
[2023-12-03 19:22] VITALS: BP 124/71; PULSE 73; RESP 18; TEMP 97.7; BMI 30.1
[2023-12-03] MEDS: DIPHTH,PERTUSS(ACELL),TET 0.5 ML DISP.SYRIN IM ONE (19:49)
[2023-12-03] MEDS ORDERED: DIPHTH,PERTUSS(ACELL),TET 0.5 ML DISP.SYRIN IM ONE (19:50)
== END 2023-12-03 20:35 | disposition home or self-care (01) ==
LOC: JERFT 19:07
PROC: 3E0234Z Introduction of Serum, Toxoid and Vaccine into Muscle, Percutaneous Approach (ICD-10-PCS; principal; 2023-12-03)
DX: S61.011A Laceration without foreign body of right thumb without damage to nail, initial encounter (principal); Z23 Encounter for immunization; W26.8XXA Contact with other sharp object(s), not elsewhere classified, initial encounter
CPT/HCPCS: 90715; 99283-25